=== PATIENT | female | born 1950 | race Caucasian/White ===

== ENCOUNTER 2023-09-29 13:10 | Inpatient (IN) ==
[2023-09-29 13:45] LABS: HCO3 VBG 23 mmol/L; Oxygen Saturation VBG < 60.0 %; PCO2 VBG 40 mmHg (38-50); PO2 VBG 36 mmHg; pH VBG 7.37 (7.36-7.41)
[2023-09-29 13:55] LABS: Basophils # (auto) 0.06 K/uL (0.00-0.20); Basophils % (auto) 0.9 %; Eosinophils # (auto) 0.15 K/uL (0.00-0.50); Eosinophils % (auto) 2.4 %; Hematocrit (blood only) 38.2 % (37.0-47.0); Hemoglobin 11.4 g/dl (12.0-16.0); Immature Granulocytes # (auto) 0.04 K/uL (0.01-0.20); Immature Granulocytes % (auto) 0.6 %; Lymphocytes # (auto) 1.16 K/uL (1.20-3.40); Lymphocytes % (auto) 18.3 %; Mean Corpuscular Hemoglobin 24.1 pg (25.0-34.0); Mean Corpuscular Hgb Conc 29.8 g/dL (32.0-36.0); Mean Corpuscular Volume 80.6 fL (80.0-100.0); Mean Platelet Volume 8.6 fL (9.4-12.4); Monocytes # (auto) 0.37 K/uL (0.11-0.59); Monocytes % (auto) 5.8 %; Neutrophils # (auto) 4.56 K/uL (1.40-6.50); Platelet Count 157 K/uL (130-400); RDW Coefficient of Variation 17.5 % (11.5-14.5); RDW Standard Deviation 51.6 fL (36.4-46.3); Red Blood Count 4.74 M/uL (4.20-5.40); White Blood Count 6.34 K/ul (4.8-10.8)
--- NOTE | 2023-09-29 13:58 | XRay Report ---
XR chest 1V portable CLINICAL HISTORY: Dyspnea. COMPARISON STUDY: No previous studies for comparison. FINDINGS: Lung volumes are normal. Exam is compromised given suboptimal penetration. There is no pneu mothorax. There are suspected small bilateral pleural effusions. Left basilar opacity is noted. There may also be left basilar opacity. Cardiac silhouette is enlarged. There is pulmonary vascular conges tion without overt pulmonary edema. Mediastinal widening is likely related to lipomatosis. IMPRESSION: 1. Cardiomegaly with pulmonary vascular congestion. 2. Right basilar opacity. Possible left basilar opacity. The findings may reflect pneumonia or atele ctasis. Radiographic follow-up to ensure resolution is recommended. 3. Small bilateral pleural effusions. ACT 112: Negative or not required by law. Electronically signed by: Johnny Gimenez M.D. 09/29/2023 1:57 PM
--- NOTE | 2023-09-29 14:08 | Emergency Department Note ---
Impression & Plan Acute dyspnea, Acute exacerbation of chronic obstructive pulmonary disease, Hypoxia ED Provider Note HISTORY OF PRESENT ILLNESS: Patient is a 73-year-old female presenting with shortness of breath. Patient reports that her primary care provider's appointment today at 11 AM. She went to her PCP appointment and then was referred to the emergency department. Patient reports she has had progressively worsening shortness of breath over the last 2 weeks. Reports chronic lower extremity edema. Denies any significant cough. Denies any chest pain. Denies any recent fevers. She does report that there are multiple people in her apartment complex to have had COVID. Patient does report she has a history of COPD but has not been on any oral antibiotics or steroids recently. Reports her home pulse ox was dropping into the 80s. ROS: as above PHYSICAL EXAM: Constitutional: Patient appears in no acute distress. HENT: Head: Normocephalic and atraumatic. Eyes: EOMI, PERRL Mouth/Throat: Mucous membranes moist. Neck: Trachea midline. Neck supple. Cardiovascular: Irregular rhythm. No murmurs, rubs or gallops. Intact distal pulses. Pulmonary/Chest: No respiratory distress. Breath sounds clear and equal bilaterally. No wheezes or rales. Abdominal: Abdomen soft, no tenderness, rebound or guarding. Musculoskeletal: No tenderness or deformity noted. Non-pitting edema of bilateral lower extremities extending to ankles. Skin: Warm and dry. No rash, erythema, pallor or cyanosis Psychiatric: Appropriate mood and affect for situation. Neurological: Alert and keenly responsive. CN II-XII grossly intact, moving all extremities equally and fully. MDM: - Vitals signs showed hypertension and tachycardia. - History obtained via patient. History as above. - Chronic conditions affecting care: HTN; DM-2; COPD; leg swelling - Differential diagnoses include, but are not limited to: Congestive heart failure; acute coronary syndrome; COPD/asthma exacerbation; pulmonary edema; pulmonary embolism; pneumonia; pneumothorax; viral syndrome - Order placed for continuous cardiac monitoring. At this time, monitor showed rate of 95 bpm with irregular rhythm, per my interpretation. - External medical records reviewed. [facility] medicine visit note from today was reviewed. Patient presented to their clinic for shortness of breath for the last 2 weeks with exertion. She had reported to them that her home pulse ox was dropping into the 80s. They instructed her to present to the emergency department. Patient drove herself home from the clinic and then called 911. - EKG interpreted by myself showed atrial fibrillation. Rate 91 bpm. QT 366. No acute ischemic changes. - Laboratory workup interpreted by myself showed normal WBC; stable electrolytes; normal troponin; elevated BNP (151) - Viral respiratory panel negative - UA negative for infection - VBG negative - CXR negative for pneumonia, per my interpretation. Radiology notes bilateral opacities. - Did not start patient on antibiotics, as she has had no fever and no WBC. - Patient ambulated with nursing staff and saturation's dropped to mid-80s. She became very dyspneic and wheezy. Given duoneb treatment and 60 mg IV solumedrol (patient is diabetic). Started on 2L NC. - Discussion was had with case planner about patient's case and need for admission - Hospitalist consulted for admission - [facility] ASSESSMENT AND PLAN: Diagnosis: acute dyspnea; hypoxia; COPD exacerbation Plan: admit Past Med/Surg History Social History Smoking Status: Former smoker Preferred Language: Venezuelan Feels Safe at Home: Yes Allergies Allergies Allergy/AdvReac Type Severity Reaction Status Date / Time bee venom protein (honey bee) Allergy Severe Hives Verified 09/29/23 16:27 diphenhydramine Allergy Hives Verified 09/29/23 16:29 [From Benadryl] [place] Allergy itchy rash Uncoded 09/29/23 16:29 Home Meds Home Medications Medication Instructions Recorded Confirmed albuterol sulfate 90 mcg/actuation 2 puff inhalation Q4 PRN Shortness 09/29/23 09/29/23 aerosol inhaler Of Breath Or Wheezing fluticasone propionate 45 2 puff inhalation BID 09/29/23 09/29/23 mcg-salmeterol 21 mcg/actuation HFA inhaler (Advair HFA) gabapentin 100 mg capsule 100 mg PO TID 09/29/23 09/29/23 glipizide 5 mg tablet 10 mg PO QAM 09/29/23 09/29/23 insulin glargine 100 unit/mL (3 22 unit subcut .HS PRN 09/29/23 09/29/23 mL) subcutaneous pen (Lantus Solostar U-100 Insulin) lisinopril 40 mg tablet 40 mg PO DAILY 09/29/23 09/29/23 naproxen sodium 220 mg tablet 440 mg PO HS 09/29/23 09/29/23 ([place]) Results & Data (ED) Vital Signs Vital Signs - 24 hr 09/29/23 13:27 09/29/23 13:27 09/29/23 13:29 Temperature 36.9 C Temperature Source Temporal Artery Scan Pulse Rate 85 95 H Pulse Rate [Apical] Pulse Rate from SpO2 Sensor Respiratory Rate 26 H Respiratory Effort / Characteristics Labored Respiratory Depth Normal Blood Pressure 154/98 H Blood Pressure [Right Arm] Blood Pressure Mean 116 Blood Pressure Mean [Right Arm] Pulse Oximetry 94 Oxygen Delivery Method Room Air Room Air Sepsis Recent Fever Within 48 Hours No Sepsis New/Unexplained Change in Mental Status No Sepsis Action Taken by Nursing No Action Required Pulse Oximetry Post Tiitration 94 09/29/23 13:30 09/29/23 14:06 09/29/23 14:18 Temperature Temperature Source Pulse Rate 80 Pulse Rate [Apical] 96 H Pulse Rate from SpO2 Sensor 88 Respiratory Rate 23 Respiratory Effort / Characteristics Respiratory Depth Blood Pressure 143/85 H Blood Pressure [Right Arm] 143/74 H Blood Pressure Mean 104 Blood Pressure Mean [Right Arm] 97 Pulse Oximetry 93 92 92 Oxygen Delivery Method Room Air Room Air Room Air Sepsis Recent Fever Within 48 Hours Sepsis New/Unexplained Change in Mental Status Sepsis Action Taken by Nursing Pulse Oximetry Post Tiitration 09/29/23 15:00 09/29/23 15:22 09/29/23 17:00 Temperature Temperature Source Pulse Rate 96 H 100 H 93 H Pulse Rate [Apical] Pulse Rate from SpO2 Sensor Respiratory Rate 21 30 H 26 H Respiratory Effort / Characteristics Respiratory Depth Blood Pressure 147/84 H Blood Pressure [Right Arm] Blood Pressure Mean 105 Blood Pressure Mean [Right Arm] Pulse Oximetry 92 88 L 93 Oxygen Delivery Method Room Air Room Air Sepsis Recent Fever Within 48 Hours Sepsis New/Unexplained Change in Mental Status Sepsis Action Taken by Nursing Pulse Oximetry Post Tiitration 09/29/23 17:36 Temperature Temperature Source Pulse Rate 85 Pulse Rate [Apical] Pulse Rate from SpO2 Sensor Respiratory Rate Respiratory Effort / Characteristics Respiratory Depth Blood Pressure Blood Pressure [Right Arm] Blood Pressure Mean Blood Pressure Mean [Right Arm] Pulse Oximetry Oxygen Delivery Method Sepsis Recent Fever Within 48 Hours Sepsis New/Unexplained Change in Mental Status Sepsis Action Taken by Nursing Pulse Oximetry Post Tiitration Laboratory Data 09/29/23 13:25 09/29/23 13:25 Lab Results 09/29/23 09/29/23 09/29/23 Range/Units 13:25 13:37 14:30 WBC 6.34 (4.8-10.8) K/ul RBC 4.74 (4.20-5.40) M/uL Hgb 11.4 L (12.0-16.0) g/dl Hct 38.2 (37.0-47.0) % MCV 80.6 (80.0-100.0) fL MCH 24.1 L (25.0-34.0) pg MCHC 29.8 L (32.0-36.0) g/dL RDW Std Deviation 51.6 H (36.4-46.3) fL RDW Coeff of Kiera 17.5 H (11.5-14.5) % Plt Count 157 (130-400) K/uL MPV 8.6 L (9.4-12.4) fL Immature Gran % (Auto) 0.6 % Neut % (Auto) 72.0 % Lymph % (Auto) 18.3 % Daniels % (Auto) 5.8 % Eos % (Auto) 2.4 % Baso % (Auto) 0.9 % Neut # (Auto) 4.56 (1.40-6.50) K/uL Lymph # (Auto) 1.16 L (1.20-3.40) K/uL Daniels # (Auto) 0.37 (0.11-0.59) K/uL Eos # (Auto) 0.15 (0.00-0.50) K/uL Baso # (Auto) 0.06 (0.00-0.20) K/uL Immature Gran # (Auto) 0.04 (0.01-0.20) K/uL PT 12.0 (9.0-12.0) Seconds INR 1.1 (0.9-1.1) VBG pH 7.37 (7.36-7.41) VBG pCO2 40 (38-50) mmHg VBG pO2 36 mmHg VBG HCO3 23 mmol/L VBG O2 Saturation < 60.0 % VBG Base Excess -2.0 mEq/L Sodium 139 (136-145) mmol/L Potassium 3.9 (3.5-5.1) mmol/L Chloride 108 H (98-107) mmol/L Carbon Dioxide 23 (21-32) mmol/L Anion Gap 8 (3-11) BUN 15 (6-23) mg/dl Creatinine 0.91 (0.6-1.2) mg/dl Est Cr Clr Drug Dosing 64.9 ml/min Est GFR ( Amer) 72.5 ml/min Est GFR (Non-Af Amer) 62.6 ml/min BUN/Creatinine Ratio 16.5 (10-20) Glucose 108 H (70-99(Fasting)) mg/dl Calcium 9.3 (8.6-10.3) mg/dl Magnesium 1.9 (1.7-2.4) mg/dl Total Bilirubin 0.7 (0.2-1.0) mg/dl AST 18 (13-39) U/L ALT 15 (7-52) U/L Alkaline Phosphatase 91 (34-104) U/L Troponin I High Sens 12.9 (0-14) pg/ml B-Natriuretic Peptide 151 H (0-100) pg/ml Total Protein 6.8 (6.0-8.3) gm/dl Albumin 4.1 (3.4-5.0) gm/dl Globulin 2.7 (2.5-4.0) gm/dl Albumin/Globulin Ratio 1.5 (0.9-2) Urine Color Yellow Urine Appearance Clear (Clear) Urine pH 5.0 (4.5-7.5) Ur Specific [place] 1.020 (1.000-1.030) Urine Protein 1+ H (Negative) Urine Glucose (UA) Negative (Negative) Urine Ketones Negative (Negative) Urine Blood Negative (Negative) Urine Nitrite Negative (Negative) Urine Bilirubin Negative (Negative) Urine Urobilinogen Negative (Negative) Ur Leukocyte Esterase Trace H (Negative) Urine WBC (Auto) 0-5 (0-5) /hpf Urine RBC (Auto) 0-2 (0-2) /hpf U Hyaline Cast (Auto) 0-2 (0-2) /lpf U Epithel Cells (Auto) 6-10 H (0-2) /hpf Urine Bacteria (Auto) 2+ H (None Seen) Adenovirus (PCR) Not Detected (NotDetected) B. pertussis DNA (PCR) Not Detected (NotDetected) B.parapertussis DNA PCR Not Detected (NotDetected) C. pneumoniae DNA (PCR) Not Detected (NotDetected) Coronavirus OC43 (PCR) Not Detected (NotDetected) Coronavirus HKU1 (PCR) Not Detected (NotDetected) Coronavirus 229E (PCR) Not Detected (NotDetected) SARS-CoV-2 (PCR) Not Detected (NotDetected) Coronavirus NL63 (PCR) Not Detected (NotDetected) Human Metapneumovir PCR Not Detected (NotDetected) Influenza Type A (PCR) Not Detected (NotDetected) Influenza Type B (PCR) Not Detected (NotDetected) M. pneumoniae (PCR) Not Detected (NotDetected) Parainfluenza 1 (PCR) Not Detected (NotDetected) Parainfluenza 2 (PCR) Not Detected (NotDetected) Parainfluenza 3 (PCR) Not Detected (NotDetected) Parainfluenza 4 (PCR) Not Detected (NotDetected) RSV (PCR) Not Detected (NotDetected) Entero/Rhino (PCR) Not Detected (NotDetected) Administered Medications Discontinued Medications Albuterol (Albut/Ipratrop 3mg/0.5mg Neb 3 Ml Vial) 3 ml NEB NOW STA; Protocol Stop: 09/29/23 15:24 Last Admin: 09/29/23 15:29 Dose: 3 ml Documented By: OAC Methylprednisolone (Methylprednisolone 125 Mg/2 Ml Vial) 60 mg IV NOW STA Stop: 09/29/23 15:24 Last Admin: 09/29/23 15:29 Dose: 60 mg Documented By: OAC Imaging Data Radiologist's Impression: Chest X-Ray 09/29/23 13:30 XR chest 1V portable CLINICAL HISTORY: Dyspnea. COMPARISON STUDY: No previous studies for comparison. FINDINGS: Lung volumes are normal. Exam is compromised given suboptimal penetration. There is no pneumothorax. There are suspected small bilateral pleural effusions. Left basilar opacity is noted. There may also be left basilar opacity. Cardiac silhouette is enlarged. There is pulmonary vascular congestion without overt pulmonary edema. Mediastinal widening is likely related to lipomatosis. IMPRESSION: 1. Cardiomegaly with pulmonary vascular congestion. 2. Right basilar opacity. Possible left basilar opacity. The findings may reflect pneumonia or atelectasis. Radiographic follow-up to ensure resolution is recommended. 3. Small bilateral pleural effusions. ACT 112: Negative or not required by law. Electronically signed by: Johnny Gimenez M.D. 09/29/2023 1:57 PM Discharge Plan Visit Data Chief Complaint: Shortness of Breath/Dyspnea Stated Complaint: OB ED Provider: Ann Fernandez Discharge Problem: Acute dyspnea, Acute exacerbation of chronic obstructive pulmonary disease, Hypoxia Forms Stand Alone Forms: [facility] Prescriptions Prescriptions: No Action naproxen sodium [Aleve] 220 mg Tablet 440 mg PO HS gabapentin 100 mg capsule 100 mg PO TID albuterol sulfate 90 mcg/actuation HFA aerosol inhaler 2 puff INHALATION Q4 PRN (Reason: Shortness Of Breath Or Wheezing) lisinopril 40 mg Tablet 40 mg PO DAILY glipizide 5 mg Tablet 10 mg PO QAM fluticasone propion-salmeterol [Advair HFA] 45-21 mcg/actuation HFA aerosol inhaler 2 puff INHALATION BID insulin glargine [Lantus Solostar U-100 Insulin] 100 unit/mL (3 mL) insulin pen 22 unit SUBCUT .HS PRN Rx Instructions: takes if bsg < 120 Referrals Referrals: PCP,NO [Physician] -
[2023-09-29 14:09] LABS: Albumin Globulin Ratio 1.5 (0.9-2); Albumin Level 4.1 gm/dl (3.4-5.0); BUN Creatinine Ratio 16.5 (10-20); Bilirubin,Total 0.7 mg/dl (0.2-1.0); Calcium 9.3 mg/dl (8.6-10.3); Creatinine Clr Calc Pharmacy 64.9 ml/min; Est GFR (African American) 72.5 ml/min; Est GFR (Non-African American) 62.6 ml/min; Globulin 2.7 gm/dl (2.5-4.0); Magnesium 1.9 mg/dl (1.7-2.4); Potassium 3.9 mmol/L (3.5-5.1); Total Protein 6.8 gm/dl (6.0-8.3)
[2023-09-29 14:13] LABS: Troponin I High Sensitivity 12.9 pg/ml (0-14)
[2023-09-29 14:20] LABS: INR 1.1 (0.9-1.1)
[2023-09-29 14:46] LABS: Adenovirus PCR Not Detected (NotDetected); Bordetella parapertussis PCR Not Detected (NotDetected); Bordetella pertussis PCR Not Detected (NotDetected); Chlamydia pneumoniae PCR Not Detected (NotDetected); Coronavirus 229E PCR Not Detected (NotDetected); Coronavirus CoV-2 (COVID19)PCR Not Detected (NotDetected); Coronavirus HKU1 PCR Not Detected (NotDetected); Coronavirus NL63 PCR Not Detected (NotDetected); Coronavirus OC43PCR Not Detected (NotDetected); Human Metapneumovirus PCR Not Detected (NotDetected); Influenza A PCR Not Detected (NotDetected); Influenza B PCR Not Detected (NotDetected); Mycoplasma pneumoniae PCR Not Detected (NotDetected); Parainfluenza Virus 1 PCR Not Detected (NotDetected); Parainfluenza Virus 2 PCR Not Detected (NotDetected); Parainfluenza Virus 3 PCR Not Detected (NotDetected); Parainfluenza Virus 4 PCR Not Detected (NotDetected); Respiratory Syncytial VirusPCR Not Detected (NotDetected); Rhinovirus/Enterovirus PCR Not Detected (NotDetected)
[2023-09-29 15:10] LABS: Appearance Urine Clear (Clear); Bacteria Urine Automated 2+ (None Seen); Bilirubin Urine Negative (Negative); Blood Urine Negative (Negative); Cast Urine Automated 0-2 /lpf (0-2); Color Urine Yellow; Glucose Urine UA Negative (Negative); Ketones Urine Negative (Negative); Leukocyte Esterase Urine Trace (Negative); Nitrite Urine Negative (Negative); Protein Urine 1+ (Negative); RBC Urine Automated 0-2 /hpf (0-2); Urobilinogen Urine Negative (Negative); WBC Urine Automated 0-5 /hpf (0-5)
[2023-09-29] MEDS: methylPREDNISolone 125 MG/2 ML VIAL IV STA (15:29)
[2023-09-29] MEDS: ALBUT/IPRATROP 3MG/0.5MG NEB 3 ML VIAL NEB STA (15:29)
--- NOTE | 2023-09-29 19:04 | History & Physical Report ---
Date of Service September 29, 2023 Assessment & Plan (1) Acute exacerbation of chronic obstructive pulmonary disease: Plan: History of COPD on bronchodilators at home Shortness of breath for the last 2 weeks with cough and phlegm Infective exacerbation likely secondary to right basilar pneumonia Will start nebulized bronchodilator Intravenous Solu-Medrol and intravenous antibiotic Oxygen as needed Will also give cough medicine (2) Hypertension: Plan: Blood pressure remains on the upper side Will continue with current blood pressure medication Monitor (3) Type 2 diabetes mellitus, with long-term current use of insulin: Plan: Has been on glyburide and insulin Will continue and put her on sliding scale insulin coverage Will check hemoglobin A1c GERD Will put her on PPI DVT prophylaxis Subcu heparin CODE STATUS Full History of Present Illness Chief Complaint: Shortness of breath with exertion for the last 2 weeks Primary Care Provider: Devika Schofield RN She is a 73-year-old female with significant past medical history of COPD, hypertension, type 2 diabetes and GERD apparently has been complaining of shortness of breath with exertion for the last 2 weeks. The condition has been getting gradually worse and worse and she tried to get an appointment with the PCP but could not get one until today she was seen by her PCP and was sent to emergency room for continuation of care. Noted to have significant desaturation with increasing shortness of breath and wheezing. Denies any fever and or chills but has cough with productive of whitish-yellow phlegm. Oxygen saturation was noted to be around 80s at doctor's office. No chest pain or palpitation. No abdominal pain nausea and or vomiting. She was admitted with exacerbation of COPD with possible pneumonia in the right base. Allergies Allergy/AdvReac Type Severity Reaction Status Date / Time bee venom protein (honey bee) Allergy Severe Hives Verified 09/29/23 16:27 diphenhydramine Allergy Hives Verified 09/29/23 16:29 [From Benadryl] [place] Allergy itchy rash Uncoded 09/29/23 16:29 Home Medications Medication Instructions Recorded Confirmed Type albuterol sulfate 90 mcg/actuation 2 puff inhalation Q4 PRN Shortness 09/29/23 09/29/23 History aerosol inhaler Of Breath Or Wheezing fluticasone propionate 45 2 puff inhalation BID 09/29/23 09/29/23 History mcg-salmeterol 21 mcg/actuation HFA inhaler (Advair HFA) gabapentin 100 mg capsule 100 mg PO TID 09/29/23 09/29/23 History glipizide 5 mg tablet 10 mg PO QAM 09/29/23 09/29/23 History insulin glargine 100 unit/mL (3 22 unit subcut .HS PRN 09/29/23 09/29/23 History mL) subcutaneous pen (Lantus Solostar U-100 Insulin) lisinopril 40 mg tablet 40 mg PO DAILY 09/29/23 09/29/23 History naproxen sodium 220 mg tablet 440 mg PO HS 09/29/23 09/29/23 History (Aleve) Past Med/Surg History Social History Smoking Status: Former smoker Preferred Language: Persian Feels Safe at Home: Yes Review of Systems Review of Systems: All systems reviewed and are unremarkable except as mentioned in H&P Physical Exam Physical Exam: Lying in bed with some distress due to shortness of breath Constitutional: well developed, well nourished, + ill appearing and + obese Eyes: PERRL, conjunctivae normal, anicteric sclerae ENMT: external ear and nose normal, oropharynx normal Neck: trachea midline, no thyromegaly Respiratory: + respiratory distress (Minimal distress at rest) Auscultation: + diminished lung sounds, + crackles (Bibasilar crackles more on the right side) and + wheezes (Mild to moderate wheezing bilaterally) Cardiovascular: Rate/Rhythm: regular rate and regular rhythm; not tachycardic Heart Sounds: normal S1 and normal S2; no murmur Extremities: + edema (1+ edema bilaterally with chronic skin changes) Gastrointestinal (Abdomen): Inspection/Auscultation: + abdomen distended and normal bowel sounds Percussion/Palpation: abdomen soft; abdomen nontender Musculoskeletal: No acute arthritis involving any of the joint Neurologic: normal touch/pain/proprioception and moves all extremities; no focal motor deficits Psychiatric: A+Ox3, euthymic affect Lymphatic: no cervical or axillary lymphadenopathy Results & Data Results & Data Vital Signs (Past 12 Hours) Vital Signs Temp Pulse Pulse Resp BP BP Pulse Ox 09/29/23 17:36 85 09/29/23 17:00 93 H 26 H 93 09/29/23 15:22 100 H 30 H 88 L 09/29/23 15:00 96 H 21 147/84 H 92 09/29/23 14:18 92 09/29/23 14:06 96 H 143/74 H 92 09/29/23 13:30 80 23 143/85 H 93 09/29/23 13:29 95 H 09/29/23 13:27 09/29/23 13:27 36.9 C 85 26 H 154/98 H 94 O2 Del Method 09/29/23 17:36 09/29/23 17:00 09/29/23 15:22 Room Air 09/29/23 15:00 Room Air 09/29/23 14:18 Room Air 09/29/23 14:06 Room Air 09/29/23 13:30 Room Air 09/29/23 13:29 09/29/23 13:27 Room Air 09/29/23 13:27 Room Air Laboratory Results Short CBC 09/29/23 Range/Units 13:25 WBC 6.34 (4.8-10.8) K/ul Hgb 11.4 L (12.0-16.0) g/dl Hct 38.2 (37.0-47.0) % Plt Count 157 (130-400) K/uL BMP 09/29/23 13:25 Sodium 139 Potassium 3.9 Chloride 108 H Carbon Dioxide 23 BUN 15 Creatinine 0.91 Glucose 108 H Calcium 9.3 Liver Function 09/29/23 Range/Units 13:25 Total Bilirubin 0.7 (0.2-1.0) mg/dl AST 18 (13-39) U/L ALT 15 (7-52) U/L Alkaline Phosphatase 91 (34-104) U/L Albumin 4.1 (3.4-5.0) gm/dl Urine 09/29/23 Range/Units 14:30 Urine Color Yellow Urine Appearance Clear (Clear) Urine pH 5.0 (4.5-7.5) Ur Specific [place] 1.020 (1.000-1.030) Urine Protein 1+ H (Negative) Urine Glucose (UA) Negative (Negative)
[2023-09-29] MEDS ORDERED: guaiFENesin/DEXTROM SYRUP 200MG/20MG 10ML UDC PO PRN (19:07)
[2023-09-29] MEDS ORDERED: GLUCOSE 10 TAB/TUBE PO PRN (19:11)
[2023-09-29] MEDS ORDERED: DEXTROSE 50% 50 ML SYRINGE IV PRN (19:11)
[2023-09-29] MEDS ORDERED: GLUCAGON FOR INJ 1 MG VIAL SQ PRN (19:11)
[2023-09-29] MEDS ORDERED: CARBOHYDRATES FOR HYPOGLYCEMIA PO PRN (19:11)
[2023-09-29] MEDS ORDERED: GLUCOSE 40% GEL 15 GM TUBE PO PRN (19:11)
[2023-09-29] MEDS ORDERED: methylPREDNISolone 125 MG/2 ML VIAL IV SCH (19:15)
[2023-09-29] MEDS ORDERED: methylPREDNISolone 60 MG in SYRINGE 0 ML IV SCH (19:30)
[2023-09-29] MEDS: cefTRIAXone SODIUM 2,000 MG in DEXTROSE 5 % MINI-B 50 ML IV SCH (19:37)
[2023-09-29] MEDS: HEPARIN SOD 5,000 UNIT/0.5 ML VIAL SQ SCH (20:03)
[2023-09-29] MEDS: INSULIN ASPART PER UNIT CHARGE SC SCH (20:07)
[2023-09-29] MEDS: PANTOprazole 40 MG TAB PO SCH (20:07)
[2023-09-29] MEDS: DOXYCYCLINE HYCLATE 100 MG in DEXTROSE 5% MINI-B 100 ML IV SCH (20:43)
[2023-09-29] MEDS: LANTUS PER UNIT CHARGE SQ SCH (23:50)
[2023-09-29] MEDS: GABAPENTIN 100 MG CAP PO SCH (23:52)
[2023-09-29] MEDS: FLUTICASONE/VILANTEROL 100/25MCG 14 PUFFS/INHALER INH SCH (23:53)
[2023-09-29] MEDS: methylPREDNISolone 60 MG in SYRINGE 0 ML IV SCH (23:55)
[2023-09-30] MEDS: ALBUT/IPRATROP 3MG/0.5MG NEB 3 ML VIAL NEB PRN (01:32)
[2023-09-30] MEDS: FUROSEMIDE INJ 20 MG/2 ML VIAL IV ONE ×3 (02:23→12:49)
--- OUTSIDE RECORDS SUMMARY | 2023-09-30 03:48 | External Medical Summary | Summary of Care ---
Author Name Unknown Organization [facility] Address [address] [place] [address] Phone [phone] Care Team Providers Care Chief Of Party Name Role Phone Andrew Siddiqi MD Primary Care Provide r Reason for Visit * Reason Onset Date Comments Medication Refill 05/22/2023 Encounter Details Date Type Department Care Team (Late st Contact Info) Description 05/22/2023 Refill Family [address] [place] [phone] Andrew Siddiqi MD [address] [place] [address] [place] [phone] Allergies Active Allergy Reactions Criticality Noted Date Comments Diphenhydramine 08/09/2020 Food (See Comments) 01/02/2021 Honey, spearmint, BEES and bee products Insulin Glargine Itching,Rash 10/07/2022 Previously ok on Lantus documented as of this encounter (statuses as of 05/25/2023) Medications Medication Sig Dispensed Refills Start Date End Date Status Fluocinonide 0.05 % External Ointment Apply topically to hands 2-3 times daily as needed for rash 180 g 0 01/07/2021 Active Varenicline Tartrate 0.5 MG X 11 & 1 MG X 42 OralIndications:Cigar ette nicotine dependence without complication Take as directed on box. 53 Each 0 03/05/2022 Active BD Pen Needle Short U/F 31G X 8 MM (Insulin Pen Needle)Indications:Ty pe 2 diabetes mellitus with hemoglobin A1c goal of less than 8.0% (HCC) Use with Lantus Pen-Injector once daily 100 Each 0 09/17/2022 Active glipiZIDE ER 5 MG Oral Tablet Extended Release 24 Hour (Glucotrol XL)Indications:Type 2 diabetes mellitus with hemoglobin A1c goal of less than 8.0% (HCC),Type 2 diabetes mellitus with hemoglobin A1c goal of less than 7.0% (HCC) Take 2 Tablets by mouth in the morning. 180 Tablet 0 09/17/2022 Active Lisinopril 40 MG Oral TabletIndications:HTN , goal below 140/90 Take 1 Tablet by mouth in the morning. 90 Tablet 1 09/17/2022 Active Accu-Chek Guide In Vitro Strip (Glucose Blood)Indications:Typ e 2 diabetes mellitus with hemoglobin A1c goal of less than 8.0% (HCC) Use to test sugars up to 4 times a day. E11.9 400 Strip 0 10/07/2022 Active Accu-Chek Guide w/Device KitIndications:Type 2 diabetes mellitus with hemoglobin A1c goal of less than 8.0% (HCC) Use as directed. Use to test sugars up to 4 times a day. E11.9 1 Kit 0 10/07/2022 Active Accu-Chek Softclix LancetsIndications:Ty pe 2 diabetes mellitus with hemoglobin A1c goal of less than 8.0% (HCC) Use to test sugars up to 4 times a day. E11.9 400 Each 1 10/07/2022 Active Fluticasone-Salmetero l 45-21 MCG/ACT Inhalation Aerosol (Advair HFA)Indications:COPD, group B, by GOLD 2017 classification ([facility]) Inhale 2 Puffs by mouth in the morning and 2 Puffs before bedtime. 36 g 1 04/02/2023 Active Ventolin HFA 108 (90 Base) MCG/ACT Inhalation Aerosol SolutionIndications:C OPD, group B, by GOLD 2017 classification ([facility]) Inhale 2 Puffs by mouth every 4 hours as needed for Wheezing. 54 g 1 04/02/2023 Active Gabapentin 100 MG Oral Capsule (Neurontin)Indication s:Lumbar degenerative disc disease,Chronic bilateral low back pain with left-sided sciatica Take 1 Capsule by mouth in the morning and 1 Capsule at noon and 1 Capsule before bedtime. 90 Capsule 1 05/20/2023 Active Lantus SoloStar 100 UNIT/ML Subcutaneous Solution Pen-injectorIndicatio ns:Type 2 diabetes mellitus with hemoglobin A1c goal of less than 8.0% (HCC) Inject 22 Units under the skin at bedtime. 30 mL 2 05/20/2023 Active Ipratropium-Albuterol 0.5-2.5 (3) MG/3ML Inhalation Solution (Duoneb) Inhale 3 mL via nebulizer every 6 hours as needed for Shortness of Breath. 100 mL 0 05/25/2023 Active documented as of this encounter (statuses as of 05/25/2023) Active Problems Problem Noted Date Diagnosed Date Chronic bilateral low back pain with left-sided sciatica 02/05/2023 COPD, group B, by GOLD 2017 classification 02/25 Overview: Per COPD GOLD Classification Leg swelling 11/19/2020 HTN, goal below 140/90 08/09/2020 Type 2 diabetes mellitus wit h hemoglobin A1c goal of less than 8.0% 08/09/2020 Lumbar degenerative disc disease 08/09/2020 documented as of this encounter (statuses as of 05/25/2023) Resolved Problems Problem Noted Date Diagnosed Date Resolved Date COPD, severity to be determined 08/09/2020 02/28/2021 Overview: Per COPD GOLD Classification documented as of this encounter (statuses as of 05/25/2023) Social History Tobacco Use Types Packs/Day Years Used Date Smoking Tobacco: Former Cigarettes 0.3 56 Smokeless Tobacco: Never Comments:pt has tried patche s, chantix and hives Alcohol Use Standard Drinks/Week Comments Not Currently 0 (1 standard drink = 0.6 oz pur e alcohol) PHQ-2 Answer Date Recorded PHQ Adult Total Score 0 01/08/2022 Hunger Vital Sign Answer Date Recorded Within the past 12 months, y ou worried that your food would run out before you got the money to buy more. Never true 01/09/20 22 Within the past 12 months, t he food you bought just didn't last and you didn't have money to get more. Never true 01/08/2022 Sex and Gender Information Value Date Recorded Sex Assigned at Female 01/02/2021 12:50 PM EDT Gender Identity Female 01/02/2021 12:50 PM EDT Sexual Orientation Straight 01/02/2021 12 :50 PM EDT Job Start Date Occupation Industry Not on file Not on file Not on file documented as of this encounter Miscellaneous Notes * Telephone Encounter - Andrew Siddiqi MD - 05/25/2023 2:44 PM EST Signed Prescriptions: Disp Refills Ipratropium-Albuterol 0.5-2.5 (3) MG/3ML I*100 mL 0 Sig: Inhale 3 mL via nebulizer every 6 hours as needed for Shortness of Breath.Authorizing Provider: ANDREW SIDDIQI * Addendum Note - Andrew Siddiqi MD - 05/25/2023 2:44 PM ESTAddended by: ANDREW SIDDIQI on: 05/25/2023 02:44 PM Modules accepted: Orders * Telephone Encounter - Andrew Siddiqi MD - 05/25/2023 2:43 PM EST Called the pt to discuss her current symptoms - no answer x2 - agree with recommendation to be evaluated in an urgent care or ER - since pt is refusing duoneb sent * Addendum Note - Katerine Goel LPN - 05/25/2023 1:47 PM ESTAddended by: KATERINE GOEL on: 05/25/2023 01:47 PM Modules accepted: Orders * Telephone Encounter - Katerine Goel LPN - 05/25/2023 1:11 PM EST Pt is returning phone call. Reports that she has been sick for 3 weeks with and occasional cough, catching chills, running out of breath. States that when she is able to cough up a chunk of phlegm, it's a relief. Is running of of breath just walking from her kitchen to her bathroom. Pt rates SOB moderate to severe. Can Audibly hear that pt is SOB when speaking on the phone. Prescribed inhalers are not helping. Denies fever. Did home COVID test and it resulted negative. States that as soon as she steps outside, the cold air takes her breath away. Called PCP office due to no available acute appt's, spoke with Yanique and was advised that if pt is truly SOB that she needs to go to the ER and pt should schedule an appt. After getting back on the phone, explained to pt about scheduling an appt, pt stated she is not able to afford coming in for an appointment until June when insurance switches to [employer] and thenabruptly disconnected the phone call. Pt does have a nebulizer device. Pt previously took Ipratropium-Albuterol 0.5- 2.5 (3) MG/3 ML; use 4 times daily PRN as per 08/09/2022 [facility] record transfer, page 2. Med pended. Please advise. Please advise. * Telephone Encounter - Emilee Nagel LPN - 05/25/2023 10:36 AM EST There is no nebulizer med on her med list. There's advair and ventolin inhalers. Please get the actual name of the med when pts call for a refill. Left message for pt to return my call. * Telephone Encounter - Livier Rocha, melter supervisor oxygen furnace - 05/22/2023 4:54 PM EST Pt needs solution for her nebulizer she can barely breath Please send rx fred Thank you for your assistance Livier Rocha Finished Goods Inspector II [facility] ([facility]) 05/22/2023,4:55 PM documented in this encounter Plan of Treatment Upcoming Encounters Date Type Department Care Team (Late st Contact Info) Description 06/23/2023 7:20 AM EST Office Visit Family Medicine [address] [place] [phone] Andrew Siddiqi MD [address] [place] [address] [place] [phone] Health Maintenance Due Date Last Done Comments Pneumococcal Vaccine: 65+ Years (1 - PCV) 1956 Alpha-1 Antitrypsin 1968 DTaP,Tdap,and Td Vaccines (1 - Tdap) 1969 Mammogram 1990 Cologuard 1995 Colonoscopy 1995 Colorectal Cancer Screening 1995 Fecal Occult Blood Test 1995 Sigmoidoscopy 1995 Zoster Vaccines (1 of 2) 2000 Hepatitis B (1 of 3 - Risk 3-dose series) 2010 *COPD SEVERITY VERIFIED BY PFT 08/16/2020 *BASELINE EKG FOR HTN 06/24/2021 Diabetic Eye Exam 10/21/2022 10/21/2021, 02/28/2020 Depression Screening 01/08/2023 01/08/2022 Diabetic Foot Exam 01/08/2023 01/08/2022, 11/19/2020 COVID-19 Vaccine ( - season) 2023 06/20/2021, 05/23/2021 Influenza Vaccine (FLU shot) (#1) 2023 HbA1c 08/08/2023 02/05/2023, 08/0 08/2021, 05/22/2021, Additional history exists Albumin/Creatinine Ratio 02/06/2024 023, 01/15/2022, 11/19/2020 GFR 02/06/2024 02/05/2023, 0 08/2021, 05/22/2021, Additional history exists O2 ASSESSMENT COMPLETED IN PAST YEAR FOR COPD 02/06/2024 02/05/2023 Lipid Panel 02/06/2028 02/05/2023, 0 08/2021, 11/16/2020, Additional history exists DXA Scan 06/25/2028 06/25/2021 GARDASIL-HPV IMMUNIZATION SERIES Aged Out No longer eligible based on patient's age to complete this topic MENINGOCOCCAL (MENACTRA/MENVEO) Aged Out No longer eligible based on patient's age to complete this topic documented as of this encounter Medical Devices Not on filedocumented as of this encounter Care Teams Chief Of Party Relationship Specialty Start Date End Date Andrew Siddiqi MD [address] [place] [address] [place] [phone] PCP - General Family Medicine 11/19/20 documented as of this encounter
--- OUTSIDE RECORDS SUMMARY | 2023-09-30 03:48 | External Medical Summary | Summary of Care ---
Author Name Unknown Organization [facility] Address [address] [place] [address] Phone [phone] Care Team Providers Care Evaluation Engineer Name Role Phone Andrew Siddiqi MD Primary Care Provide r Reason for Visit * Reason Onset Date Comments Appointment 09/22/2023 Encounter Details Date Type Department Care Team (Late st Contact Info) Description 09/22/2023 Telephone Family [address] [place] [phone] Andrew Siddiqi MD [address] [place] [address] [place] [phone] Appointment Allergies Active Allergy Reactions Criticality Noted Date Comments Diphenhydramine 08/09/2020 Food (See Comments) 01/02/2021 Honey, spearmint, BEES and bee products Insulin Glargine Itching,Rash 10/07/2022 Previously ok on Lantus documented as of this encounter (statuses as of 09/28/2023) Medications Medication Sig Dispensed Refills Start Date [...] hemoglobin A1c goal of less than 8.0% ([facility]) Use as directed. Use to test sugars [...] HFA)Indications:COPD, group B, by GOLD 2017 classification ([facility]) Inhale 2 Puffs by mouth in the morning and 2 Puffs before bedtime. 36 g 1 04/02/2023 Active Ventolin HFA 108 (90 Base) MCG/ACT Inhalation Aerosol SolutionIndications:C OPD, group B, by GOLD 2017 classification ([facility]) Inhale 2 Puffs by mouth every 4 [...] hemoglobin A1c goal of less than 8.0% ([facility]) Inject 22 Units under the skin at bedtime. 30 mL 2 05/20/2023 Active Ipratropium-Albuterol 0.5-2.5 (3) MG/3ML Inhalation Solution (Duoneb) Inhale 3 mL via nebulizer every 6 hours as needed for Shortness of Breath. 100 mL 0 05/25/2023 Active documented as of this encounter (statuses as of 09/28/2023) Active Problems Problem Noted Date Diagnosed Date [...] as of this encounter (statuses as of 09/28/2023) Resolved Problems Problem Noted Date Diagnosed Date Resolved Date COPD, severity to be determined 08/09/2020 02/28/2021 Overview: Per COPD GOLD Classification documented as of this encounter (statuses as of 09/28/2023) Social History Tobacco Use Types Packs/Day Years [...] encounter Miscellaneous Notes * Telephone Encounter - Vijaya Rose OSA - 09/28/2023 12:18 PM EDT Patient states that her back is no longer the issue however she is having shortness of breath. I was able to get her scheduled with Yulisa on 09/29/23 @11:40 am * Telephone Encounter - Kami Tarango RN - 09/28/2023 12:12 PM EDT No answer, My G message sent to patient * Telephone Encounter - Cindy Miller OSA - 09/22/2023 11:42 AM EDT Spoke to pt voiced she has back pain and needs a visit, voiced that she re injured herself yesterday and wants to see Yulisa, viji acute visits at other locations voiced " I have no gas" please call pt, thanks documented in this encounter Plan of Treatment Upcoming Encounters Date Type Department Care Team (Late st Contact Info) Description 09/29/2023 11:40 AM EDT Office Visit Family Medicine [address] [place] [phone] Yulisa Díaz PA-C [address] [place] [address] [place] [phone] Health Maintenance Due Date Last Done Comments Pneumococcal Vaccine: 65+ Years (1 of 2 - PCV) 1956 Alpha-1 Antitrypsin 1968 DTaP,Tdap,and Td Vaccines (1 - Tdap) 1969 Mammogram 1990 Cologuard 1995 Colonoscopy 1995 Colorectal Cancer Screening 1995 Fecal Occult Blood Test 1995 Sigmoidoscopy 1995 Zoster Vaccines (1 of 2) 2000 *COPD SEVERITY VERIFIED BY PFT 08/16/2020 *BASELINE EKG FOR HTN 06/24/2021 Diabetic Eye Exam 10/21/2022 10/21/2021, 02/28/2020 Depression Screening 01/08/2023 01/08/2022 Diabetic Foot Exam 01/08/2023 01/08/2022, 11/19/2020 COVID-19 Vaccine ( season) 2023 06/20/2021, 05/23/2021 HbA1c 08/08/2023 02/05/2023, 08/0 08/2021, 05/22/2021, Additional history exists Albumin/Creatinine Ratio 02/06/2024 023, 01/15/2022, 11/19/2020 GFR 02/06/2024 02/05/2023, 08/0 08/2021, 05/22/2021, Additional history exists O2 ASSESSMENT COMPLETED IN PAST YEAR FOR COPD 02/06/2024 02/05/2023 Influenza Vaccine (FLU shot) (Season Ended) 2024 Lipid Panel 02/06/2028 02/05/2023, 08/0 08/2021, 11/16/2020, Additional history exists DXA Scan 06/25/2028 06/25/2021, 06/25/2021 GARDASIL-HPV IMMUNIZATION SERIES Aged Out No longer eligible based on patient's age to complete this topic Hepatitis B Aged Out No longer eligi ble based on patient's age to complete this topic MENINGOCOCCAL (MENACTRA/MENVEO) Aged Out No longer eligible based on patient's age to complete this topic documented as of this encounter Medical Devices Not on filedocumented as of this encounter Care Teams Evaluation Engineer Relationship Specialty Start Date End Date Andrew Siddiqi MD [address] [place] [address] [place] [phone] PCP - General Family Medicine 11/19/20 documented as of this encounter
--- OUTSIDE RECORDS SUMMARY | 2023-09-30 03:48 | External Medical Summary | Summary of Care ---
Author Name Unknown Organization [facility] Address [address] [place] [place] [address] Phone [phone] Care Team Providers Care Social Media Coordinator Name Role Phone Andrew Siddiqi MD Primary Care Provide r Reason for Visit * Reason Comments Acute Encounter Details Date Type Department Care Team (Late st Contact Info) Description 09/29/2023 11:40 AM EDT Office Visit Family Medicine [address] [place] [address] Yulisa Díaz PA-C [address] [place] [address] [place] [phone] SOB (shortness of breath)*; Type 2 diabetes mellitus with hemoglobin A1c goal of less than 8.0% (HCC) Allergies Active Allergy Reactions Criticality Noted Date Comments Diphenhydramine 08/09/2020 Food (See Comments) 01/02/2021 Honey, spearmint, BEES and bee products Insulin Glargine Itching,Rash 10/07/2022 Previously ok on Lantus documented as of this encounter (statuses as of 09/29/2023) Medications Medication Sig Dispensed Refills Start Date End Date Status BD Pen Needle Short U/F 31G X 8 MM (Insulin Pen Needle)Indications :Type 2 diabetes mellitus with hemoglobin A1c goal of less than 8.0% (HCC) Use with Lantus Pen-Injector once daily 100 Each 0 3 Active glipiZIDE ER 5 MG Oral Tablet Extended Release 24 Hour (Glucotrol XL)Indications:Typ e 2 diabetes mellitus with hemoglobin A1c goal of less than 8.0% (HCC),Type 2 diabetes mellitus with hemoglobin A1c goal of less than 7.0% (HCC) Take 2 Tablets by mouth in the morning. 180 Tablet 0 3 Active Lisinopril 40 MG Oral TabletIndications: HTN, goal below 140/90 Take 1 Tablet by mouth in the morning. 90 Tablet 1 3 Active Accu-Chek Guide In Vitro Strip (Glucose Blood)Indications: Type 2 diabetes mellitus with hemoglobin A1c goal of less than 8.0% ([facility]) Use to test sugars up to 4 times a day. E11.9 400 Strip 0 3 Active Accu-Chek Guide w/Device KitIndications:Typ e 2 diabetes mellitus with hemoglobin A1c goal of less than 8.0% ([facility]) Use as directed. Use to test sugars up to 4 times a day. E11.9 1 Kit 0 3 Active Accu-Chek Softclix LancetsIndications :Type 2 diabetes mellitus with hemoglobin A1c goal of less than 8.0% ([facility]) Use to test sugars up to 4 times a day. E11.9 400 Each 1 3 Active Fluticasone-Salmet marisela 45-21 MCG/ACT Inhalation Aerosol (Advair HFA)Indications:CO PD, group B, by GOLD 2017 classification ([facility]) Inhale 2 Puffs by mouth in the morning and 2 Puffs before bedtime. 36 g 1 3 Active Ventolin HFA 108 (90 Base) MCG/ACT Inhalation Aerosol SolutionIndication s:COPD, group B, by GOLD 2017 classification ([facility]) Inhale 2 Puffs by mouth every 4 hours as needed for Wheezing. 54 g 1 3 Active Gabapentin 100 MG Oral Capsule (Neurontin)Indicat ions:Lumbar degenerative disc disease,Chronic bilateral low back pain with left-sided sciatica Take 1 Capsule by mouth in the morning and 1 Capsule at noon and 1 Capsule before bedtime. 90 Capsule 1 3 Active Ipratropium-Albute rol 0.5-2.5 (3) MG/3ML Inhalation Solution (Duoneb) Inhale 3 mL via nebulizer every 6 hours as needed for Shortness of Breath. 100 mL 0 3 Active Lantus SoloStar 100 UNIT/ML Subcutaneous Solution Pen-injectorIndica tions:Type 2 diabetes mellitus with hemoglobin A1c goal of less than 8.0% (HCC) Inject 22 Units under the skin at bedtime. Uses this as needed based on sugars 0 4 Active Naproxen Sodium 220 MG Oral Tablet (Aleve) 2 at bedtime 0 4 Active Fluocinonide 0.05 % External Ointment Apply topically to hands 2-3 times daily as needed for rash 180 g 0 1 09/29/19 24 Discontinued(Pat ient preference/disco ntinuation) Varenicline Tartrate 0.5 MG X 11 & 1 MG X 42 OralIndications:April gifford nicotine dependence without complication Take as directed on box. 53 Each 0 2 09/29/19 24 Discontinued(Pat ient preference/disco ntinuation) Lantus SoloStar 100 UNIT/ML Subcutaneous Solution Pen-injectorIndica tions:Type 2 diabetes mellitus with hemoglobin A1c goal of less than 8.0% (HCC) Inject 22 Units under the skin at bedtime. 30 mL 2 3 09/29/19 24 Discontinued documented as of this encounter (statuses as of 09/29/2023) Active Problems Problem Noted Date Diagnosed Date [...] as of this encounter (statuses as of 09/29/2023) Resolved Problems Problem Noted Date Diagnosed Date Resolved Date COPD, severity to be determined 08/09/2020 02/28/2021 Overview: Per COPD GOLD Classification documented as of this encounter (statuses as of 09/29/2023) Social History Tobacco Use Types Packs/Day Years [...] on file documented as of this encounter Last Filed Vital Signs Vital Sign Reading Time Taken Comments Blood Pressure 150/84 09/29/2023 11:19 AM EDT Pulse 80 09/29/2023 11:19 AM EDT Temperature 36.4 C (97.6 F) 09/29/2023 11:19 AM E DT Respiratory Rate 16 09/29/2023 11:19 AM EDT Oxygen Saturation 94% 09/29/2023 11:19 AM EDT Inhaled Oxygen Concentration - - Weight 108.9 kg (240 lb) 09/29/2023 11:19 AM EDT Height 161.3 cm (5' 3.5") 09/29/2023 11:19 AM ED T Body Mass Index 41.85 09/29/2023 11:19 AM EDT documented in this encounter Progress Notes * Yulisa Díaz PA-C - 09/29/2023 11:28 AM EDT Nursing Notes: Kami Tarango, LEONARD 09/29/23 1125 Sign at exiting of workspace Acute Short of Breath x 1-2 weeks with any walking or activity, takes chills pt states sometimes athome her pulse ox is in the 80's Pt here today with SOB. Her pulse ox is dropping into the 80's. She does have COPD. She is using her inhaler sna neb with no relief. Pt states that the SOB is much worse with exertion. She drove herself here today. Review of patient's allergies indicates: Allergen Reactions Benadryl [Diphenhydramine] Food (See Comments) Honey, spearmint, BEES and bee products Semglee [Insulin Glargine] Itching and Rash Previously ok on Lantus Current Outpatient Medications Medication Sig Dispense Refill BD Pen Needle Short U/F 31G X 8 MM (Insulin Pen Needle) Use with Lantus Pen- Injector once daily 100Each 0 glipiZIDE ER 5 MG Oral Tablet Extended Release 24 Hour (Glucotrol XL) Take 2 Tablets by mouth in the morning. 180 Tablet 0 Lisinopril 40 MG Oral Tablet Take 1 Tablet by mouth in the morning. 90 Tablet 1 Accu-Chek Guide w/Device Kit Use as directed. Use to test sugars up to 4 times a day. E11.9 1 Kit 0 Accu-Chek Softclix Lancets Use to test sugars up to 4 times a day. E11.9 400 Each 1 Fluticasone-Salmeterol 45-21 MCG/ACT Inhalation Aerosol (Advair HFA) Inhale 2 Puffs by mouth in themorning and 2 Puffs before bedtime. 36 g 1 Ventolin HFA 108 (90 Base) MCG/ACT Inhalation Aerosol Solution Inhale 2 Puffs by mouth every 4 hours as needed for Wheezing. 54 g 1 Gabapentin 100 MG Oral Capsule (Neurontin) Take 1 Capsule by mouth in the morning and 1 Capsule at noon and 1 Capsule before bedtime. 90 Capsule 1 Ipratropium-Albuterol 0.5-2.5 (3) MG/3ML Inhalation Solution (Duoneb) Inhale 3 mL via nebulizer every 6 hours as needed for Shortness of Breath. 100 mL 0 Lantus SoloStar 100 UNIT/ML Subcutaneous Solution Pen-injector Inject 22 Units under the skin at bedtime. Uses this as needed based on sugars Naproxen Sodium 220 MG Oral Tablet (Aleve) 2 at bedtime Accu-Chek Guide In Vitro Strip (Glucose Blood) Use to test sugars up to 4 times a day. E11.9 400 Strip 0 No current facility-administered medications for this visit. Past Medical History: Diagnosis Date COPD, group B, by GOLD 2017 classification ([facility]) 02/25/2021 Per COPD GOLD Classification DDD (degenerative disc disease), lumbar HTN, goal below 140/90 08/09/2020 Leg swelling 11/19/2020 Lumbar degenerative disc disease 08/09/2020 Type 2 diabetes mellitus with hemoglobin A1c goal of less than 8.0% ([facility]) 08/09/2020 Social History Socioeconomic History Marital status: Spouse name: Not on file Number of children: Not on file Years of education: Not on file Highest education level: Not on file Occupational History Not on file Tobacco Use Smoking status: Former Current packs/day: 0.25 Average packs/day: 0.3 packs/day for 56.0 years (14.0 ttl pk-yrs) Types: Cigarettes Smokeless tobacco: Never Tobacco comments: pt has tried patches, chantix and hives Vaping Use Vaping Use: Never used Substance and Sexual Activity Alcohol use: Not Currently Drug use: Never Sexual activity: Not on file Other Topics Concern Not on file Social History Narrative Social Determinants of Health Financial Resource Strain: Not on file Food Insecurity: No Food Insecurity (01/08/2022) Hunger Vital Sign Worried About Running Out of Food in the Last Year: Never true Ran Out of Food in the Last Year: Never true Transportation Needs: Not on file Physical Activity: Not on file Stress: Not on file Social Connections: Not on file Intimate Partner Violence: Not on file Housing Stability: Not on file O:Blood pressure 150/84, pulse 80, temperature 36.4 C (97.6 F), resp. rate 16, height 1.613 m (5' 3.5"), weight 108.9 kg (240 lb), SpO2 94%. GENERAL: alert and mild distress HEART: regular rate & rhythm, no murmur, and no gallops LUNGS: lungs clear to auscultation, decreased breath sounds A:SOB (shortness of breath) (Primary) Type 2 diabetes mellitus with hemoglobin A1c goal of less than 8.0% ([facility]) Pt will go to ER. She refuses to go by ambulance. I told her that she can't drive herself over to [place]. She wants to go home and call ambulance from her home. Any questions/problems, please call. If anything changes, worsens, develops new sx, please call [facility]. Follow Up: Return if symptoms worsen or fail to improve. Yulisa Díaz PA-C documented in this encounter Nursing Notes * Kami Tarango, RN - 09/29/2023 11:19 AM EDT Acute Short of Breath x 1-2 weeks with any walking or activity, takes chills pt states sometimes athome her pulse ox is in the 80's documented in this encounter Plan of Treatment Health Maintenance Due Date Last Done Comments [...] (Season Ended) 2024 Lipid Panel 02/06/2028 02/05/2023, 080 08/2021, 11/16/2020, Additional history exists DXA Scan [...] Not on filedocumented as of this encounter Visit Diagnoses Diagnosis SOB (shortness of breath)- Primary Shortness of breath Type 2 diabetes mellitus with hemoglobin A1c goal of less than 8.0% (HCC) documented in this encounter Care Teams Social Media Coordinator Relationship Specialty Start Date End Date Andrew Siddiqi MD [address] [place] [address] [place] [phone] PCP - General Family Medicine 11/19/20 documented as of this encounter
--- OUTSIDE RECORDS SUMMARY | 2023-09-30 03:48 | External Medical Summary | Summary of Care ---
Author Name Unknown Organization [facility] Address [address] [place] [address] Phone [phone] Care Team Providers Care Homicide Squad Captain Name Role Phone Andrew Siddiqi MD Primary Care Provide r Reason for Visit * Reason Onset Date Comments Appointment 09/22/2023 Encounter Details Date Type Department Care Team (Late st Contact Info) Description 09/22/2023 Telephone Family [address] [place] [address] Andrew Siddiqi MD [address] [place] [address] [place] [phone] Appointment Allergies Active Allergy Reactions Criticality Noted [...] hemoglobin A1c goal of less than 8.0% ([facility]) Use as directed. Use to test sugars [...] B, by GOLD 2017 classification ([facility]) Inhale 2 Puffs by mouth in the morning and 2 Puffs before bedtime. 36 g 1 04/02/2023 Active Ventolin HFA 108 (90 Base) MCG/ACT Inhalation Aerosol SolutionIndications:C OPD, group B, by GOLD 2017 classification ([facility]) Inhale 2 Puffs by mouth [...] hemoglobin A1c goal of less than 8.0% ([facility]) Inject 22 Units under the skin at [...] 11:40 AM EDT Office Visit Family Medicine [address] [place] [phone] Yulisa Díaz PA-C [address] [place] [address] [place] [phone] Health Maintenance Due Date Last Done Comments [...] filedocumented as of this encounter Care Teams Homicide Squad Captain Relationship Specialty Start Date End Date Andrew Siddiqi MD [address] [place] [address] [place] [phone] PCP - General Family Medicine 11/19/20 documented as of this encounter
--- OUTSIDE RECORDS SUMMARY | 2023-09-30 03:49 | External Medical Summary | Summary of Care ---
Author Name Unknown Organization [facility] Address [address] [place] [address] Phone [phone] Care Team Providers Care Drafting Instructor Name Role Phone Andrew Siddiqi MD Primary Care Provide r Reason for Visit * Reason Onset Date Comments Medication Refill 05/22/2023 Encounter Details Date Type Department Care Team (Late st Contact Info) Description 05/22/[address] [place] [address] Andrew Siddiqi MD [address] [place] [address] [place] [phone] Medication Refill Allergies Active Allergy Reactions Criticality Noted Date [...] HFA)Indications:COPD, group B, by GOLD 2017 classification ([facility]) Inhale 2 Puffs by mouth in the morning and 2 Puffs before bedtime. 36 g 1 04/02/2023 Active Ventolin HFA 108 (90 Base) MCG/ACT Inhalation Aerosol SolutionIndications:C OPD, group B, by GOLD 2017 classification ([facility]) Inhale 2 Puffs by mouth every [...] hemoglobin A1c goal of less than 8.0% ([facility]) Inject 22 Units under the skin at bedtime. 30 mL 2 05/20/2023 Active documented as of this encounter (statuses [...] encounter Miscellaneous Notes * Telephone Encounter - Livier Rocha circuits engineer - 05/22/2023 4:54 PM EST Pt needs solution for her nebulizer she can barely breath Please send rx fred Thank you for your assistance Livier Rocha Business Assistant II [facility] ([facility] (Former[facility]) 05/22/2023,4:55 PM documented in this encounter Plan of Treatment Upcoming Encounters Date Type Department Care Team (Late st Contact Info) Description 06/23/2023 7:20 AM EST Office Visit Family Medicine [address] [place] [address] Andrew Siddiqi MD [address] [place] [address] [place] [address] Health Maintenance Due Date [...] (FLU shot) (#1) 2023 HbA1c 08/08/2023 02/05/2023, 08/2021, 05/22/2021, Additional history exists Albumin/Creatinine Ratio 02/06/2024 023, 01/15/2022, 11/19/2020 GFR 02/06/2024 02/05/2023, 080 08/2021, 05/22/2021, Additional history exists O2 ASSESSMENT [...] filedocumented as of this encounter Care Teams Drafting Instructor Relationship Specialty Start Date End Date Andrew Siddiqi MD [address] [place] [address] [place] [phone] PCP - General Family Medicine 11/19/20 documented as of this encounter
--- OUTSIDE RECORDS SUMMARY | 2023-09-30 03:49 | External Medical Summary | Summary of Care ---
Author Name Unknown Organization [facility] Address [address] [place] [address] Phone [phone] Care Team Providers Care Senior Planner Name Role Phone Andrew Siddiqi MD Primary Care Provide r Reason for Visit * Reason Onset Date Comments Medication Refill 05/20/2023 Encounter Details Date Type Department Care Team (Late st Contact Info) Description 05/20/[address] [place] [phone] Andrew Siddiqi MD [address] [place] [address] [place] [address] Medication Refill Allergies Active Allergy Reactions Criticality Noted Date Comments Diphenhydramine 08/09/2020 Food (See Comments) 01/02/2021 Honey, spearmint, BEES and bee products Insulin Glargine Itching,Rash 10/07/2022 Previously ok on Lantus documented as of this encounter (statuses as of 05/21/2023) Medications Medication Sig Dispensed Refills Start Date [...] HFA)Indications:COPD, group B, by GOLD 2017 classification ([facility]) Inhale 2 Puffs by mouth in the morning and 2 Puffs before bedtime. 36 g 1 04/02/2023 Active Ventolin HFA 108 (90 Base) MCG/ACT Inhalation Aerosol SolutionIndications:C OPD, group B, by GOLD 2017 classification ([facility]) Inhale 2 Puffs by mouth every 4 hours as needed for Wheezing. 54 g 1 04/02/2023 Active Gabapentin 100 MG Oral Capsule (Neurontin)Indication s:Lumbar degenerative disc disease,Chronic bilateral low back pain with left-sided sciatica Take 1 Capsule by mouth in the morning and 1 Capsule at noon and 1 Capsule before bedtime. 90 Capsule 1 05/20/2023 Active documented as of this encounter (statuses as of 05/21/2023) Active Problems Problem Noted Date Diagnosed Date [...] as of this encounter (statuses as of 05/21/2023) Resolved Problems Problem Noted Date Diagnosed Date Resolved Date COPD, severity to be determined 08/09/2020 02/28/2021 Overview: Per COPD GOLD Classification documented as of this encounter (statuses as of 05/21/2023) Social History Tobacco Use Types Packs/Day Years [...] encounter Miscellaneous Notes * Telephone Encounter - Luz Chopra, [facility] - 05/21/2023 3:12 PM EST Patient Phone Numbers Attempted to contact patient to discuss establishing w/ MTM, no answer. Left message to return callto clinic. If no response, can consider warm hand off at upcoming PCP visit on 06/23/23. Luz Chopra RPh, PharmD Clinical Pharmacist - Director [facility] 05/21/2023, 3:13 PM [phone] * Telephone Encounter - Jon Hernandez LPN - 05/21/2023 1:44 PM EST Ended on 10/07/22 Semglee insulin gave her rash/issues 02/05/2023 (in office), Visit date not found (telemedicine) Next apt 06/23/2023 02/11/23 ref for Pharmacist Pt cancelled 03/17/23 apt Baldo can we get her rescheduled and talk about Ozempic medication / insulin * Telephone Encounter - Silva Xavier CPhT - 05/20/2023 11:24 AM EST Pt stating she did not have a reaction to this medication- it was the generic "off brand" for lantus Patient requesting refills for ozempic. Upon chart review, medication is listed as discontinued, with discontinuation reason as "adverse reaction". Please advise if you wish to continue this therapy for the patient. Thank you, Silva Xavier CPhT II Coal Conveyor Operator [facility] ([facility] (Former[facility]) 05/20/2023, 11:25 AM documented in this encounter Plan of Treatment Upcoming Encounters Date Type Department Care Team (Late st Contact Info) Description 06/23/2023 7:20 AM EST Office Visit Family [address] [place] [phone] Andrew Siddiqi MD [address] [place] [address] [place] [phone] Health Maintenance Due Date Last Done Comments [...] COPD 02/06/2024 02/05/2023 Lipid Panel 02/06/2028 02/05/2023, 08/0 08/2021, 11/16/2020, Additional history exists DXA Scan 06/25/2028 06/25/2021 GARDASIL-HPV IMMUNIZATION SERIES Aged Out No longer eligible based on patient's age to complete this topic MENINGOCOCCAL (MENACTRA/MENVEO) Aged Out No longer eligible based on patient's age to complete this topic documented as of this encounter Medical Devices Not on filedocumented as of this encounter Visit Diagnoses Diagnosis Type 2 diabetes mellitus with hemoglobin A1c goal of less than 8.0% (HCC) documented in this encounter Care Teams Senior Planner Relationship Specialty Start Date End Date Andrew Siddiqi MD [address] [place] [address] [place] [phone] PCP - General Family Medicine 11/19/20 documented as of this encounter
--- OUTSIDE RECORDS SUMMARY | 2023-09-30 03:49 | External Medical Summary | Summary of Care ---
Author Name Unknown Organization [facility] Address [address] [facility] [place] [address] Phone [phone] Care Team Providers Care Director On Air Name Role Phone Andrew Siddiqi MD Primary Care Provide r Reason for Visit * Reason Onset Date Comments Medication Refill 05/20/2023 Encounter Details Date Type Department Care Team (Late st Contact Info) Description 05/20/[address] [place] [address] Andrew Siddiqi MD [address] [place] [address] [place] [phone] Lumbar degenerative disc disease; Chronic bilateral low back pain with left-sided sciatica Allergies Active Allergy Reactions Criticality Noted Date Comments Diphenhydramine 08/09/2020 Food (See Comments) 01/02/2021 Honey, spearmint, BEES and bee products Insulin Glargine Itching,Rash 10/07/2022 Previously ok on Lantus documented as of this encounter (statuses as of 05/20/2023) Medications Medication Sig Dispensed Refills Start Date End Date Status Fluocinonide 0.05 % External Ointment Apply topically to hands 2-3 times daily as needed for rash 180 g 0 01/07/2021 Active Varenicline Tartrate 0.5 MG X 11 & 1 MG X 42 OralIndications:Ciga rette nicotine dependence without complication Take as directed on box. 53 Each 0 03/05/2022 Active BD Pen Needle Short U/F 31G X 8 MM (Insulin Pen Needle)Indications:T ype 2 diabetes mellitus with hemoglobin A1c goal [...] 0 09/17/2022 Active Lisinopril 40 MG Oral TabletIndications:HT N, goal below 140/90 Take 1 Tablet by mouth in the morning. 90 Tablet 1 09/17/2022 Active Accu-Chek Guide In Vitro Strip (Glucose Blood)Indications:Ty pe 2 diabetes mellitus with hemoglobin A1c [...] 1 Kit 0 10/07/2022 Active Accu-Chek Softclix LancetsIndications:T ype 2 diabetes mellitus with hemoglobin A1c goal of less than 8.0% (HCC) Use to test sugars up to 4 times a day. E11.9 400 Each 1 10/07/2022 Active Lantus SoloStar 100 UNIT/ML Subcutaneous Solution Pen-injectorIndicati ons:Type 2 diabetes mellitus with hemoglobin A1c goal of less than 8.0% (HCC) Inject 22 Units under the skin at bedtime. 30 mL 0 10/10/2022 Active Fluticasone-Salmeter ol 45-21 MCG/ACT Inhalation Aerosol (Advair HFA)Indications:COPD , group B, by GOLD 2017 classification ([facility]) Inhale 2 Puffs by mouth in the morning and 2 Puffs before bedtime. 36 g 1 04/02/2023 Active Ventolin HFA 108 (90 Base) MCG/ACT Inhalation Aerosol SolutionIndications: COPD, group B, by GOLD 2017 classification ([facility]) Inhale 2 Puffs by mouth every 4 hours as needed for Wheezing. 54 g 1 04/02/2023 Active Gabapentin 100 MG Oral Capsule (Neurontin)Indicatio ns:Lumbar degenerative disc disease,Chronic bilateral low back pain with left-sided sciatica Take 1 Capsule by mouth in the morning and 1 Capsule at noon and 1 Capsule before bedtime. 90 Capsule 1 05/20/2023 Active Gabapentin 100 MG Oral Capsule (Neurontin)Indicatio ns:Lumbar degenerative disc disease,Chronic bilateral low back pain with left-sided sciatica Take 1 Capsule by mouth in the morning and 1 Capsule at noon and 1 Capsule before bedtime. 90 Capsule 1 02/05/2023 Discontinue d(Refill) documented as of this encounter (statuses as of 05/20/2023) Active Problems Problem Noted Date Diagnosed Date [...] as of this encounter (statuses as of 05/20/2023) Resolved Problems Problem Noted Date Diagnosed Date Resolved Date COPD, severity to be determined 08/09/2020 02/28/2021 Overview: Per COPD GOLD Classification documented as of this encounter (statuses as of 05/20/2023) Social History Tobacco Use Types Packs/Day Years [...] Telephone Encounter - Andrew Siddiqi MD - 05/20/2023 11:26 AM EST Signed Prescriptions: Disp Refills Gabapentin 100 MG Oral Capsule (Neurontin) 90 Cap*1 Sig: Take 1 Capsule by mouth in the morning and 1 Capsule at noon and 1 Capsule before bedtime. Authorizing Provider: ANDREW SIDDIQI * Telephone Encounter - Silva Xavier CPhT - 05/20/2023 11:21 AM EST Did you pend patient's preferred pharmacy and medication before forwarding?yes Pharmacy: [id number] Pending Prescriptions: Disp Refills Gabapentin 100 MG Oral Capsule (Neurontin)90 Cap*1 Sig: Take 1 Capsule by mouth in the morning and 1 Capsule at noon and 1 Capsule before bedtime. Last Visit: 02/05/2023 (in office), Visit date not found (telemedicine) Next Visit: 06/23/2023 If no future appointments scheduled, and last appointment is greater than a year ago, please schedule patient for a follow-up appointment Last date the medication was ordered: 02/05/23 Is this request for a controlled substance?No Urine Drug Screen:No results found for this or any previous visit. Patient Phone Numbers Labs: Lab Results Component Value Date/Time CREAT 0.8 02/05/2023 10:39 AM CREAT 0.89 11/16/2019 12:00 AM POTASSIUM 4.4 02/05/2023 10:39 AM POTASSIUM 4.6 11/16/2019 12:00 AM TSH 2.31 11/16/2020 07:54 AM LDLCALC 102 02/05/2023 10:39 AM LDLCALC 117.20 01/25/2020 12:00 AM ALT 27 11/16/2020 07:54 AM HGBA1C 9.1 (H) 02/05/2023 10:39 AM HGBA1C 7.7 (A) 01/25/2020 12:00 AM documented in this encounter Plan of Treatment Upcoming Encounters Date Type Department Care Team (Late st Contact Info) Description 06/23/2023 7:20 AM EST Office Visit Family Medicine [address] [place] [address] Andrew Siddiqi MD [address] [place] [address] [place] [phone] Health Maintenance Due Date Last Done Comments [...] (FLU shot) (#1) 2023 HbA1c 08/08/2023 02/05/2023, 080 08/2021, 05/22/2021, Additional history exists Albumin/Creatinine Ratio 02/06/2024 023, 01/15/2022, 11/19/2020 GFR 02/06/2024 02/05/2023, 080 08/2021, 05/22/2021, Additional history exists O2 ASSESSMENT COMPLETED IN PAST YEAR FOR COPD 02/06/2024 02/05/2023 Lipid Panel 02/06/2028 02/05/2023, 080 08/2021, 11/16/2020, Additional history exists DXA Scan 06/25/2028 06/25/2021 GARDASIL-HPV IMMUNIZATION SERIES Aged Out No longer eligible based on patient's age to complete this topic MENINGOCOCCAL (MENACTRA/MENVEO) Aged Out No longer eligible based on patient's age to complete this topic documented as of this encounter Medical Devices Not on filedocumented as of this encounter Visit Diagnoses Diagnosis Lumbar degenerative disc disease Degeneration of lumbar or lumbosacral intervertebral disc Chronic bilateral low back pain with left-sided sciatica documented in this encounter Care Teams Director On Air Relationship Specialty Start Date End Date Andrew Siddiqi MD [address] [place] [address] [place] [phone] PCP - General Family Medicine 11/19/20 documented as of this encounter
--- OUTSIDE RECORDS SUMMARY | 2023-09-30 03:49 | External Medical Summary | Summary of Care ---
Author Name Unknown Organization [facility] Address [address] [place] [address] Phone [phone] Care Team Providers Care Machinist Supervisor Outside Name Role Phone Andrew Siddiqi MD Primary Care Provide r Reason for Visit * Reason Onset Date Comments Medication Refill 05/20/2023 Encounter Details Date Type Department Care Team (Late st Contact Info) Description 05/20/[address] [place] [address] Andrew Siddiqi MD [address] [place] [address] [place] [phone] Medication Refill Allergies Active [...] HFA)Indications:COPD, group B, by GOLD 2017 classification ([facility]) Inhale 2 Puffs by mouth in the morning and 2 Puffs before bedtime. 36 g 1 04/02/2023 Active Ventolin HFA 108 (90 Base) MCG/ACT Inhalation Aerosol SolutionIndications:C OPD, group B, by GOLD 2017 classification ([facility]) Inhale 2 Puffs by mouth [...] encounter Miscellaneous Notes * Telephone Encounter - Jon Hernandez LPN [...] patient. Thank you, Silva Xavier CPhT II Loan Services Professional [facility] ([facility]) (Formerly Telepharmacy) 05/20/2023, 11:25 AM documented in this encounter Plan of Treatment Upcoming Encounters Date Type Department Care Team (Late st Contact Info) Description 06/23/2023 7:20 AM EST Office Visit Family Medicine [address] [phone] Andrew Siddiqi MD [address] [place] [address] [place] [address] Health Maintenance Due Date [...] COVID-19 Vaccine ( season) 2023 06/20/2021, 05/23/2021 Influenza Vaccine (FLU [...] (HCC) documented in this encounter Care Teams Machinist Supervisor Outside Relationship Specialty Start Date End Date Andrew Siddiqi MD [address] [place] [address] [place] [address] PCP - General Family Medicine 11/19/20 documented as of this encounter
--- OUTSIDE RECORDS SUMMARY | 2023-09-30 03:49 | External Medical Summary | Summary of Care ---
Author Name Unknown Organization [facility] Address [address] [place] [address] Phone [phone] Care Team Providers Care Ball Points Inspector Name Role Phone Andrew Siddiqi MD Primary Care Provide r Reason for Visit * Reason Onset Date Comments Medication Refill 05/22/2023 Encounter Details Date Type Department Care Team (Late st Contact Info) Description 05/22/[address] [place] [address] Andrew Siddiqi MD [address] [place] [address] [place] [phone] Medication Refill Allergies Active [...] B, by GOLD 2017 classification ([facility]) Inhale 2 Puffs by mouth in the morning and 2 Puffs before bedtime. 36 g 1 04/02/2023 Active Ventolin HFA 108 (90 Base) MCG/ACT Inhalation Aerosol SolutionIndications:C OPD, group B, by GOLD 2017 classification ([facility]) Inhale 2 Puffs by mouth every [...] hemoglobin A1c goal of less than 8.0% ([facility]) Inject 22 Units under the skin [...] encounter Miscellaneous Notes * Telephone Encounter - Katerine Goel LPN - 05/25/2023 1:11 PM EST Pt is returning phone call. Reports that she has been sick for 3 weeks with and occasional cough, catching chills, running our of breath. States that when she is able to cough up a chunk of phlegm, it's a relief. Is running of of breath just walking from her kitchen to her bathroom. Pt rates SOB moderate to severe. Prescribed inhalers are not helping. Denies fever. [...] appointment until June when insurance switches to [employer]. Please advise. * Telephone Encounter - Emilee Nagel LPN - 05/25/2023 10:36 AM EST There is no nebulizer med on her med list. There's advair and ventolin inhalers. Please get the actual name of the med when pts call for a refill. Left message for pt to return my call. * Telephone Encounter - Livier Rocha service writer advisor - 05/22/2023 4:54 PM EST Pt needs solution for her nebulizer she can barely breath Please send rx fred Thank you for your assistance Livier Rocha Elevator Inspector II [facility] ([facility]) (Formerly Telepharmacy) 05/22/2023,4:55 PM documented in this encounter Plan of Treatment Upcoming Encounters Date Type Department Care Team (Late st Contact Info) Description 06/23/2023 7:20 AM EST Office Visit Family Medicine [address] [place] [address] Andrew Siddiqi MD [address] [place] [address] [place] [phone] Health Maintenance Due Date Last Done Comments [...] filedocumented as of this encounter Care Teams Ball Points Inspector Relationship Specialty Start Date End Date Andrew Siddiqi MD [address] [place] [address] [place] [phone] PCP - General Family Medicine 11/19/20 documented as of this encounter
--- OUTSIDE RECORDS SUMMARY | 2023-09-30 03:49 | External Medical Summary | Summary of Care ---
Author Name Unknown Organization [facility] Address [address] [place] [address] Phone [phone] Care Team Providers Care Financial Services Assistant Name Role Phone Andrew Siddiqi MD Primary Care Provide r Reason for Visit * Reason Onset Date Comments Medication Refill 09/16/2022 Encounter Details Date Type Department Care Team (Late st Contact Info) Description 09/16/2022 Refill Family [address] [place] [address] Andrew Siddiqi MD [address] [place] [address] [place] [phone] Type 2 diabetes mellitus with hemoglobin A1c goal of less than 8.0% ([facility]); Type 2 diabetes mellitus with hemoglobin A1c goal of less than 7.0% ([facility]); HTN, goal below 140/90 Allergies Active Allergy Reactions Criticality Noted Date Comments Diphenhydramine 08/09/2020 Food (See Comments) 01/02/2021 Honey, spearmint, BEES and bee products Insulin Glargine Itching,Rash 10/07/2022 Previously ok on Lantus documented as of this encounter (statuses as of 04/16/2023) Medications Medication Sig Dispensed Refills Start Date [...] hemoglobin A1c goal of less than 8.0% ([facility]) Use with Lantus Pen-Injector once daily 100 Each 0 09/17/2022 Active glipiZIDE ER 5 MG Oral Tablet Extended Release 24 Hour (Glucotrol XL)Indications:Type 2 diabetes mellitus with hemoglobin A1c goal of less than 8.0% ([facility]),Type 2 diabetes mellitus with hemoglobin A1c goal of less than 7.0% ([facility]) Take 2 Tablets by mouth in the morning. 180 Tablet 0 09/17/2022 Active Lisinopril 40 MG Oral TabletIndications:HT N, goal below 140/90 Take 1 Tablet by mouth in the morning. 90 Tablet 1 09/17/2022 Active OneTouch Verio w/Device KitIndications:Type 2 diabetes mellitus with hemoglobin A1c goal of less than 7.0% ([facility]) Use up to 3 times a day Dx E11.9 pt is on insulin 1 Kit 0 10/01/2020 3 Discontinue d(Medicatio n/Dose Changed) Lisinopril 40 MG Oral TabletIndications:HT N, goal below 140/90 Take 1 Tab by mouth daily. 90 Tab 3 10/05/2020 3 Discontinue d(Refill) OneTouch Delica Lancets 30GIndications:Type 2 diabetes mellitus with hemoglobin A1c goal of less than 8.0% ([facility]) Use to test blood sugars once a day dx e11.9 100 Each 3 12/12/2020 3 Discontinue d(Refill) OneTouch Verio In Vitro Strip (Glucose Blood)Indications:Ty pe 2 diabetes mellitus with hemoglobin A1c goal of less than 8.0% ([facility]) Use to test blood sugar once a day dx e11.9 100 Strip 3 12/12/2020 3 Discontinue d(Refill) Ventolin HFA 108 (90 Base) MCG/ACT Inhalation Aerosol SolutionIndications: COPD, group B, by GOLD 2017 classification ([facility]) Inhale 2 Puffs by mouth every 4 hours as needed for Wheezing. 54 g 0 05/23/2021 3 Discontinue d(Refill) Advair HFA 45-21 MCG/ACT Inhalation Aerosol (Fluticasone-Salmete rol)Indications:COPD , group B, by GOLD 2017 classification ([facility]) Inhale 2 Puffs by mouth 2 times a day. 36 g 0 05/23/2021 3 Discontinue d(Refill) glipiZIDE ER 5 MG Oral Tablet Extended Release 24 Hour (Glucotrol XL)Indications:Type 2 diabetes mellitus with hemoglobin A1c goal of less than 8.0% ([facility]),Type 2 diabetes mellitus with hemoglobin A1c goal of less than 7.0% ([facility]) Take 2 Tablets by mouth daily. 180 Tablet 3 06/17/2021 3 Discontinue d(Refill) Ozempic (1 MG/DOSE) 4 MG/3ML Subcutaneous Solution Pen-injector (Semaglutide (1 MG/DOSE))Indications :Type 2 diabetes mellitus with hemoglobin A1c goal of less than 8.0% ([facility]),Type 2 diabetes mellitus with hemoglobin A1c goal of less than 7.0% ([facility]) Inject 1 mg under the skin once a week. 9 mL 3 06/17/2021 3 Discontinue d(Refill) BD Pen Needle Short U/F 31G X 8 MM (Insulin Pen Needle)Indications:T ype 2 diabetes mellitus with hemoglobin A1c goal of less than 8.0% ([facility]) Use with Lantus Pen-Injector once daily 90 Each 1 08/05/2021 3 Discontinue d(Refill) Insulin Glargine Solostar 100 UNIT/ML Subcutaneous Solution Pen-injector (Lantus SoloStar)Indications :Type 2 diabetes mellitus with hemoglobin A1c goal of less than 8.0% ([facility]) Inject under the skin 22 Units at bedtime . 30 mL 1 01/20/2022 3 Discontinue d(Refill) OneTouch Verio w/Device Kit Use up to 4 times a day E11.9 1 Kit 0 05/02/2022 3 Discontinue d(Medicatio n/Dose Changed) OneTouch Delica Lancets 30GIndications:Type 2 diabetes mellitus with hemoglobin A1c goal of less than 8.0% ([facility]) Use to test blood sugars once a day dx e11.9 100 Each 0 09/17/2022 3 Discontinue d(Medicatio n/Dose Changed) OneTouch Verio In Vitro Strip (Glucose Blood)Indications:Ty pe 2 diabetes mellitus with hemoglobin A1c goal of less than 8.0% (HCC) Use to test blood sugar once a day dx e11.9 100 Strip 0 09/17/2022 3 Discontinue d(Medicatio n/Dose Changed) Insulin Glargine Solostar 100 UNIT/ML Subcutaneous Solution Pen-injector (Lantus SoloStar)Indications :Type 2 diabetes mellitus with hemoglobin A1c goal of less than 8.0% (HCC) Inject 22 Units under the skin at bedtime. 30 mL 0 09/17/2022 3 Discontinue d(Adverse reaction) Ozempic (1 MG/DOSE) 4 MG/3ML Subcutaneous Solution Pen-injector (Semaglutide (1 MG/DOSE))Indications :Type 2 diabetes mellitus with hemoglobin A1c goal of less than 8.0% (HCC),Type 2 diabetes mellitus with hemoglobin A1c goal of less than 7.0% (HCC) Inject 1 mg under the skin once a week. 9 mL 0 09/17/2022 3 Discontinue d(Adverse reaction) documented as of this encounter (statuses as of 04/16/2023) Active Problems Problem Noted Date Diagnosed Date [...] as of this encounter (statuses as of 04/16/2023) Resolved Problems Problem Noted Date Diagnosed Date Resolved Date COPD, severity to be determined 08/09/2020 02/28/2021 Overview: Per COPD GOLD Classification documented as of this encounter (statuses as of 04/16/2023) Social History Tobacco Use Types Packs/Day Years Used Date Smoking Tobacco: Every Day Cigarettes 0.3 56 Smokeless Tobacco: Never Comments:pt has tried patche s, chantix and hives Alcohol Use Standard Drinks/Week Comments Not Currently 0 (1 standard drink = 0.6 oz pur e alcohol) Sex and Gender Information Value Date Recorded Sex Assigned at Female 01/02/2021 12:50 PM EDT Gender Identity Female 01/02/2021 12:50 PM EDT Sexual Orientation Straight 01/02/2021 12 :50 PM EDT Job Start Date Occupation Industry Not on file Not on file Not on file documented as of this encounter Miscellaneous Notes * Telephone Encounter - Fanta Enrique PHARM Tech - 04/16/2023 5:37 PM EDT Received message from [facility] regarding patient needing labs. Patient had lab drawn on 02/05/2023. Thank you, Fanta Enrique Portfolio Consultant [facility] ([facility]) 04/16/2023,5:37 PM * Telephone Encounter - Chelsae Neri [facility] - 09/17/2022 1:06 PM EDTSigned Prescriptions: Disp Refills OneTouch Delica Lancets 30G 100 Ea*0 Sig: Use to test blood sugars once a day dx e11.9 Authorizing Provider: ANDREW SIDDIQI Ordering User: CHELSEA NERI OneTouch Verio In Vitro Strip (Glucose Blo*100 St*0 Sig: Use to test blood sugar once a day dx e11.9 Authorizing Provider: ANDREW SIDDIQI Ordering User: CHELSEA NERI Insulin Glargine Solostar 100 UNIT/ML Subc*30 mL 0 Sig: Inject 22 Units under the skin at bedtime. Authorizing Provider: ANDREW SIDDIQI Ordering User: CHELSEA NERI BD Pen Needle Short U/F 31G X 8 MM (Insuli*100 Ea*0 Sig: Use with Lantus Pen-Injector once daily Authorizing Provider: ANDREW SIDDIQI Ordering User: CHELSEA NERI Ozempic (1 MG/DOSE) 4 MG/3ML Subcutaneous *9 mL 0 Sig: Inject 1 mg under the skin once a week. Authorizing Provider: ANDREW SIDDIQI Ordering User: CHELSEA NERI glipiZIDE ER 5 MG Oral Tablet Extended Rel*180 Ta*0 Sig: Take 2 Tablets by mouth in the morning. Authorizing Provider: ANDREW SIDDIQI Ordering User: CHELSEA NERI Lisinopril 40 MG Oral Tablet 90 Tab*1 Sig: Take 1 Tablet by mouth in the morning. Authorizing Provider: ANDREW SIDDIQI Ordering User: CHELSEA NERI * Telephone Encounter - Chelsea Neri RPh - 09/17/2022 1:04 PM EDT Provided 90 days supply with 0 refill(s). Per refill protocol patient should have a1c on file within past 6 months. Reviewed AMP report, Care Gaps/Health Maintenance, medications list, and for any routine labs typically ordered for this patient. Lab orders placed. Please contact patient to advise of labs ordered for blood draw. Fasting is not required. Advise toobtain labs before requesting the next refill. Thanks, [place] Neri, PharmD Clinical Pharmacist [facility] [phone] 09/17/2022 1:04 PM * Telephone Encounter - Livier Rocha - 09/16/2022 9:53 AM EDT Did you pend patient's preferred pharmacy and medication before forwarding?yes Pharmacy: [facility], [address] [place] Pending Prescriptions: Disp Refills OneTouch Delica Lancets 30G 100 Ea*3 Sig: Use to test blood sugars once a day dx e11.9 OneTouch Verio In Vitro Strip (Glucose Bl*100 St*3 Sig: Use to test blood sugar once a day dx e11.9 Insulin Glargine Solostar 100 UNIT/ML Sub*30 mL 1 Sig: Inject 22 Units under the skin at bedtime. BD Pen Needle Short U/F 31G X 8 MM (Insul*90 Each1 Sig: Use with Lantus Pen-Injector once daily Ozempic (1 MG/DOSE) 4 MG/3ML Subcutaneous*9 mL 3 Sig: Inject 1 mg under the skin once a week. glipiZIDE ER 5 MG Oral Tablet Extended Re*180 Ta*3 Sig: Take 2 Tablets by mouth in the morning. Lisinopril 40 MG Oral Tablet 90 Tab*3 Sig: Take 1 Tablet by mouth in the morning. Last Visit: 01/22/2022 (in office), Visit date not found (telemedicine) Next Visit: Visit date not found If no future appointments scheduled, and last appointment is greater than a year ago, please schedule patient for a follow-up appointment Last date the medication was ordered: Is this request for a controlled substance?No Urine Drug Screen:No results found for this or any previous visit. Patient Phone Numbers Labs: Lab Results Component Value Date/Time CREAT 0.9 01/15/2022 04:00 PM CREAT 0.89 11/16/2019 12:00 AM POTASSIUM 4.4 01/15/2022 04:00 PM POTASSIUM 4.6 11/16/2019 12:00 AM TSH 2.31 11/16/2020 07:54 AM LDLCALC 100 01/15/2022 04:00 PM LDLCALC 117.20 01/25/2020 12:00 AM ALT 27 11/16/2020 07:54 AM HGBA1C 8.9 (H) 01/15/2022 04:00 PM HGBA1C 7.7 (A) 01/25/2020 12:00 AM documented in this encounter Plan of Treatment Upcoming Encounters Date Type Department Care Team (Late st Contact Info) Description 05/14/2023 10:40 AM EST Office Visit Family Medicine [address] [place] [address] Andrew Siddiqi MD [address] [place] [address] [place] [phone] Health Maintenance Due Date Last Done Comments [...] Not on filedocumented as of this encounter Results * (ABNORMAL) HEMOGLOBIN A1C (02/05/2023 10:39 AM EDT) Hemoglobin A1C 9.1(H) 4.0 - 5.6 % 02/05/2023 11:23 PM EDT [facility] Comment:The use of HbA1c to monitor glycemic status is based on normal hemoglobin and HbA composition. This test should not be used in patients with abnormal hemoglobin that affects the half life of the red blood cell or the in vivo glycation rates. Estimated Average Glucose 214(H) <126 mg/dL 02/05/2023 11:23 PM EDT [facility] Blood Venous blood specimen / Unknown Venipuncture / Unknown 02/05/2023 10:39 AM EDT 02/05/2023 10:40 AM EDT [place] Neri [facility] LAB BLOOD ORDERABL ES [facility] [address] [place] [address] documented in this encounter Visit Diagnoses Diagnosis Type 2 diabetes mellitus with hemoglobin A1c goal of less than 8.0% (HCC) Type 2 diabetes mellitus with hemoglobin A1c goal of less than 7.0% (HCC) HTN, goal below 140/90 Unspecified essential hypertension documented in this encounter Care Teams Financial Services Assistant Relationship Specialty Start Date End Date Andrew Siddiqi MD [address] [place] [address] [place] [phone] PCP - General Family Medicine 11/19/20 documented as of this encounter
--- OUTSIDE RECORDS SUMMARY | 2023-09-30 03:49 | External Medical Summary | Summary of Care ---
Author Name Unknown Organization [facility] Address [address] [place] [address] Phone [phone] Care Team Providers Care Rehabilitation Services Counselor Name Role Phone Andrew Siddiqi MD Primary Care Provide r Reason for Visit * Reason Onset Date Comments Medication Refill 05/22/2023 Encounter Details Date Type Department Care Team (Late st Contact Info) Description 05/22/2023 Refill Family [address] [place] [address] Andrew Siddiqi MD [address] [place] [address] [place] [phone] Allergies Active Allergy Reactions Criticality Noted Date [...] HFA)Indications:COPD, group B, by GOLD 2017 classification ([facility]) Inhale 2 Puffs by mouth in the morning and 2 Puffs before bedtime. 36 g 1 04/02/2023 Active Ventolin HFA 108 (90 Base) MCG/ACT Inhalation Aerosol SolutionIndications:C OPD, group B, by GOLD 2017 classification ([facility]) Inhale 2 Puffs by mouth every 4 [...] hemoglobin A1c goal of less than 8.0% ([facility]) Inject 22 Units under the skin at [...] as of this encounter Miscellaneous Notes * Addendum Note - Katerine Goel LPN [...] appointment until June when insurance switches to [employer] and thenabruptly disconnected the phone call. Pt does have a nebulizer device. Pt previously took Ipratropium-Albuterol 0.5- 2.5 (3) MG/3 ML; use 4 times daily PRN as per 08/09/2022 [facility] record transfer, page 2. Med pended. Please [...] call. * Telephone Encounter - Livier Rocha ultimate hoops scoreboard operator - 05/22/2023 4:54 PM EST Pt needs solution for her nebulizer she can barely breath Please send rx fred Thank you for your assistance Livier Rocha Barber II [facility] ([facility]) (Formerly Telepharm[facility]) 05/22/2023,4:55 PM documented in this encounter Plan of Treatment Upcoming Encounters Date Type Department Care Team (Late st Contact Info) Description 06/23/2023 7:20 AM EST Office Visit Family Medicine [address] [phone] Andrew Siddiqi MD [address] [place] [address] [place] [phone] Health Maintenance Due Date [...] filedocumented as of this encounter Care Teams Rehabilitation Services Counselor Relationship Specialty Start Date End Date Andrew Siddiqi MD [address] [place] [address] [place] [phone] PCP - General Family Medicine 11/19/20 documented as of this encounter
--- OUTSIDE RECORDS SUMMARY | 2023-09-30 03:49 | External Medical Summary | Summary of Care ---
Author Name Unknown Organization [facility] Address [address] [place] [address] Phone [phone] Care Team Providers Care Log Handler Name Role Phone Andrew Siddiqi MD Primary Care Provide r Reason for Visit * Reason Onset Date Comments Medication Refill 05/22/2023 Encounter Details Date Type Department Care Team (Late st Contact Info) Description 05/22/[address] [place] [address] Andrew Siddiqi MD [address] [place] [address] [place] [phone] Medication Refill Allergies Active [...] encounter Miscellaneous Notes * Telephone Encounter - Emilee Nagel LPN - 05/25/2023 10:36 AM EST There is no nebulizer med on her med list. There's advair and ventolin inhalers. Please get the actual name of the med when pts call for a refill. Left message for pt to return my call. * Telephone Encounter - Livier Rocha wool fleece grader - 05/22/2023 4:54 PM EST Pt needs solution for her nebulizer she can barely breath Please send rx fred Thank you for your assistance Livier Rocha Vice President [employer] [facility] ([facility]) (Formerly Tele[facility]acy) 05/22/2023,4:55 PM documented in this encounter Plan of Treatment Upcoming Encounters Date Type Department Care Team (Late st Contact Info) Description 06/23/2023 7:20 AM EST Office Visit Family Medicine [address] [place] [address] Andrew Siddiqi MD [address] [place] [address] [place] [phone] Health Maintenance Due Date Last Done Comments [...] filedocumented as of this encounter Care Teams Log Handler Relationship Specialty Start Date End Date Andrew Siddiqi MD [address] [place] [address] [place] [phone] PCP - General Family Medicine 11/19/20 documented as of this encounter
--- OUTSIDE RECORDS SUMMARY | 2023-09-30 03:49 | External Medical Summary | Summary of Care ---
Author Name Unknown Organization [facility] Address [address] [place] [address] Phone [phone] Care Team Providers Care Training Facilitator Name Role Phone Andrew Siddiqi MD Primary Care Provide r Reason for Visit * Reason Onset Date Comments Medication Refill 05/20/2023 Encounter Details Date Type Department Care Team (Late st Contact Info) Description 05/20/[address] [place] [address] Andrew Siddiqi MD [address] [place] [address] [place] [phone] Type 2 diabetes mellitus with hemoglobin A1c goal of less than 8.0% ([facility]) Allergies Active Allergy Reactions Criticality Noted Date [...] day. E11.9 400 Each 1 10/07/2022 Active Fluticasone-Salmeter ol 45-21 MCG/ACT Inhalation Aerosol (Advair HFA)Indications:COPD , group B, by GOLD 2017 classification ([facility]) Inhale 2 Puffs by mouth in the morning and 2 Puffs before bedtime. 36 g 1 04/02/2023 Active Ventolin HFA 108 (90 Base) MCG/ACT Inhalation Aerosol SolutionIndications: COPD, group B, by GOLD 2017 classification ([facility]) Inhale 2 Puffs by mouth [...] at bedtime. 30 mL 2 05/20/2023 Active Lantus SoloStar 100 UNIT/ML Subcutaneous Solution Pen-injectorIndicati ons:Type 2 diabetes mellitus with hemoglobin A1c goal of less than 8.0% (HCC) Inject 22 Units under the skin at bedtime. 30 mL 0 10/10/2022 3 Discontinue d(Refill) documented as of this encounter [...] encounter Miscellaneous Notes * Telephone Encounter - Robin Díaz [facility] - 05/20/2023 4:40 PM EST Signed Prescriptions: Disp Refills Lantus SoloStar 100 UNIT/ML Subcutaneous S*30 mL 2 Sig: Inject 22 Units under the skin at bedtime. Authorizing Provider: ANDREW SIDDIQI User: ROBIN DÍAZ * Telephone Encounter - Silva Xavier CPhT - 05/20/2023 11:26 AM EST Pt stating this needs to be brand- pt had reaction to generic pharmacy dispensed for her Did you pend patient's preferred pharmacy and medication before forwarding?yes Pharmacy: [id number] Pending Prescriptions: Disp Refills Lantus SoloStar 100 UNIT/ML Subcutaneous *30 mL 0 Sig: Inject 22 Units under the skin at bedtime. Last Visit: 02/05/2023 (in office), Visit date not found (telemedicine) Next Visit: 06/23/2023 If no future appointments scheduled, and last appointment is greater than a year ago, please schedule patient for a follow-up appointment Last date the medication was ordered: 10/10/22 Is this request for a controlled substance?No [...] 7:20 AM EST Office Visit Family Medicine [address] [phone] Andrew Siddiqi MD [address] [place] [address] [place] [phone] Health Maintenance Due Date Last Done Comments [...] Foot Exam 01/08/2023 01/08/2022, 11/19/2020 COVID-19 Vaccine (3 - season) 2023 06/20/2021, 05/23/2021 Influenza Vaccine [...] (HCC) documented in this encounter Care Teams Training Facilitator Relationship Specialty Start Date End Date Andrew Siddiqi MD [address] [place] [address] [place] [phone] PCP - General Family Medicine 11/19/20 documented as of this encounter
--- OUTSIDE RECORDS SUMMARY | 2023-09-30 03:50 | External Medical Summary | Summary of Care ---
Author Name Unknown Organization [facility] Address [address] [place] [facility] [place] [facility] [place] [address] Phone [phone] Care Team Providers Care Teachers' Aide Name Role Phone Andrew Siddiqi MD Primary Care Provide r Reason for Visit * Reason Onset Date Comments Medication Refill 09/16/2022 Encounter Details Date Type Department Care Team (Late st Contact Info) Description 09/16/2022 Refill Family [address] [place] [address] Andrew Siddiqi MD [address] [place] [address] [place] [phone] Type 2 diabetes mellitus with hemoglobin A1c goal of less than 8.0% ([facility]); Type 2 diabetes mellitus with hemoglobin A1c goal of less than 7.0% (HCC); HTN, goal below 140/90 Allergies Active Allergy Reactions Criticality Noted Date Comments Diphenhydramine 08/09/2020 Food (See Comments) 01/02/2021 Honey, spearmint, BEES and bee products documented as of this encounter (statuses as [...] hemoglobin A1c goal of less than 8.0% ([facility]) Use with Lantus Pen-Injector once daily 100 Each 0 09/17/2022 Active glipiZIDE ER 5 MG Oral Tablet Extended Release 24 Hour (Glucotrol XL)Indications:Type 2 diabetes mellitus with hemoglobin A1c goal of less than 8.0% ([facility]),Type 2 diabetes mellitus with hemoglobin A1c goal of less than 7.0% ([facility]) Take 2 Tablets by mouth in the morning. 180 Tablet 0 09/17/2022 Active Lisinopril 40 MG Oral TabletIndications:HT N, goal below 140/90 Take 1 Tablet by mouth in the morning. 90 Tablet 1 09/17/2022 Active OneTouch Verio w/Device KitIndications:Type 2 diabetes mellitus with hemoglobin A1c goal of less than 7.0% ([facility]) Use up to 3 times a day Dx E11.9 pt is on insulin 1 Kit 0 10/01/2020 3 Discontinue d(Medicatio n/Dose Changed) Lisinopril 40 MG Oral TabletIndications:HT N, goal below 140/90 Take 1 Tab by mouth daily. 90 Tab 3 10/05/2020 3 Discontinue d(Refill) OneTouch Delica Lancets 30GIndications:Type 2 diabetes mellitus with hemoglobin A1c goal of less than 8.0% ([facility]) Use to test blood sugars once a day dx e11.9 100 Each 3 12/12/2020 3 Discontinue d(Refill) OneTouch Verio In Vitro Strip (Glucose Blood)Indications:Ty pe 2 diabetes mellitus with hemoglobin A1c goal of less than 8.0% ([facility]) Use to test blood sugar once a day dx e11.9 100 Strip 3 12/12/2020 3 Discontinue d(Refill) Ventolin HFA 108 (90 Base) MCG/ACT Inhalation Aerosol SolutionIndications: COPD, group B, by GOLD 2017 classification ([facility]) Inhale 2 Puffs by mouth every 4 hours as needed for Wheezing. 54 g 0 05/23/2021 3 Discontinue d(Refill) Advair HFA 45-21 MCG/ACT Inhalation Aerosol (Fluticasone-Salmete rol)Indications:COPD , group B, by GOLD 2017 classification ([facility]) Inhale 2 Puffs by mouth 2 times a day. 36 g 0 05/23/2021 3 Discontinue d(Refill) glipiZIDE ER 5 MG Oral Tablet Extended Release 24 Hour (Glucotrol XL)Indications:Type 2 diabetes mellitus with hemoglobin A1c goal of less than 8.0% ([facility]),Type 2 diabetes mellitus with hemoglobin A1c goal of less than 7.0% ([facility]) Take 2 Tablets by mouth daily. 180 Tablet 3 06/17/2021 3 Discontinue d(Refill) Ozempic (1 MG/DOSE) 4 MG/3ML Subcutaneous Solution Pen-injector (Semaglutide (1 MG/DOSE))Indications :Type 2 diabetes mellitus with hemoglobin A1c goal of less than 8.0% ([facility]),Type 2 diabetes mellitus with hemoglobin A1c goal of less than 7.0% ([facility]) Inject 1 mg under the skin once a week. 9 mL 3 06/17/2021 3 Discontinue d(Refill) BD Pen Needle Short U/F 31G X 8 MM (Insulin Pen Needle)Indications:T ype 2 diabetes mellitus with hemoglobin A1c goal of less than 8.0% ([facility]) Use with Lantus Pen-Injector once daily 90 Each 1 08/05/2021 3 Discontinue d(Refill) Insulin Glargine Solostar 100 UNIT/ML Subcutaneous Solution Pen-injector (Lantus SoloStar)Indications :Type 2 diabetes mellitus with hemoglobin A1c goal of less than 8.0% ([facility]) Inject under the skin 22 Units at bedtime . 30 mL 1 01/20/2022 3 Discontinue d(Refill) OneTouch Verio w/Device Kit Use up to 4 times a day E11.9 1 Kit 0 05/02/2022 3 Discontinue d(Medicatio n/Dose Changed) OneTouch Delica Lancets 30GIndications:Type 2 diabetes mellitus with hemoglobin A1c goal of less than 8.0% ([facility]) Use to test blood sugars once a [...] Active Problems Problem Noted Date Diagnosed Date COPD, group B, by GOLD 2017 [...] encounter Miscellaneous Notes * Telephone Encounter - Chelsea Neri, [facility] - 09/17/2022 1:06 PM EDTSigned Prescriptions: Disp [...] NERI * Telephone Encounter - Chelsea Neri RP - 09/17/2022 1:04 PM EDT Provided 90 [...] refill. Thanks, Chelsea Neri, PharmD Clinical Pharmacist [facility] [phone] 09/17/2022 1:04 PM * Telephone Encounter - Livier Rocha - 09/16/2022 9:53 AM EDT Did you pend patient's preferred pharmacy and medication before forwarding?yes Pharmacy: [facility], [address] [place] Pending Prescriptions: Disp Refills [...] 10:40 AM EST Office Visit Family Medicine [address] [place] [phone] Andrew Siddiqi MD [address] [place] [address] [place] [phone] Health Maintenance Due Date Last Done Comments [...] 5.6 % 02/05/2023 11:23 PM EDT LABORATORY C Comment:The use of HbA1c to monitor glycemic status is based on normal hemoglobin and HbA composition. This test should not be used in patients with abnormal hemoglobin that affects the half life of the red blood cell or the in vivo glycation rates. Estimated Average Glucose 214(H) <126 mg/dL 02/05/2023 11:23 PM EDT LABORATORY GM Blood Venous blood specimen / Unknown Venipuncture / Unknown 02/05/2023 10:39 AM EDT 02/05/2023 10:40 AM EDT Chelsea Neri [facility] LAB BLOOD ORDERABL ES LABORATORY [facility] [address] [place] [address] documented in this encounter Visit Diagnoses Diagnosis Type 2 diabetes mellitus with hemoglobin A1c goal of less than 8.0% (HCC) Type 2 diabetes mellitus with hemoglobin A1c goal of less than 7.0% (HCC) HTN, goal below 140/90 Unspecified essential hypertension documented in this encounter Care Teams Teachers' Aide Relationship Specialty Start Date End Date Andrew Siddiqi MD [address] [place] [address] [place] [phone] PCP - General Family Medicine 11/19/20 documented as of this encounter
--- OUTSIDE RECORDS SUMMARY | 2023-09-30 03:50 | External Medical Summary | Summary of Care ---
Author Name Unknown Organization [facility] Address [address] [place] [address] Phone [phone] Care Team Providers Care Battalion Chief Name Role Phone Andrew Siddiqi MD Primary Care Provide r Reason for Referral * Medication Prior Authorization - Pending Review Specialty Diagnoses / Procedures Referred By Sharif t Referred To Contact Diagnoses COPD, group B, by GOLD 2017 classification ([facility]) Carolyn Anthony, [facility] [address] [facility] [place] [address] Referral ID Status Reason Start Date Expiration Date V isits Requested Visits Authorized [id number] Pending Review [id number] Reason for Visit * Reason Onset Date Comments Medication Refill 04/02/2023 Encounter Details Date Type Department Care Team (Late st Contact Info) Description 04/02/2023 Refill Family [address] [place] [address] Andrew Siddiqi MD [address] [place] [address] [place] [phone] COPD, group B, by GOLD 2017 classification ([facility]) Allergies Active Allergy Reactions Criticality Noted Date Comments Diphenhydramine 08/09/2020 Food (See Comments) 01/02/2021 Honey, spearmint, BEES and bee products Insulin Glargine Itching,Rash 10/07/2022 Previously ok on Lantus documented as of this encounter (statuses as of 04/07/2023) Medications Medication Sig Dispensed Refills Start Date [...] at bedtime. 30 mL 0 10/10/2022 Active Gabapentin 100 MG Oral Capsule (Neurontin)Indicatio ns:Lumbar degenerative disc disease,Chronic bilateral low back pain with left-sided sciatica Take 1 Capsule by mouth in the morning and 1 Capsule at noon and 1 Capsule before bedtime. 90 Capsule 1 02/05/2023 Active Fluticasone-Salmeter ol 45-21 MCG/ACT Inhalation Aerosol (Advair HFA)Indications:COPD , group B, by GOLD 2017 classification ([facility]) Inhale 2 Puffs by mouth in the morning and 2 Puffs before bedtime. 36 g 1 04/02/2023 Active Ventolin HFA 108 (90 Base) MCG/ACT Inhalation Aerosol SolutionIndications: COPD, group B, by GOLD 2017 classification ([facility]) Inhale 2 Puffs by mouth every 4 hours as needed for Wheezing. 54 g 1 04/02/2023 Active Ventolin HFA 108 (90 Base) MCG/ACT Inhalation Aerosol SolutionIndications: COPD, group B, by GOLD 2017 classification ([facility]) Inhale 2 Puffs by mouth every 4 hours as needed for Wheezing. 54 g 0 05/23/2021 3 Discontinue d(Refill) Fluticasone-Salmeter ol 45-21 MCG/ACT Inhalation Aerosol (Advair HFA)Indications:COPD , group B, by GOLD 2017 classification ([facility]) Inhale 2 Puffs by mouth in the morning and 2 Puffs before bedtime. 36 g 0 02/05/2023 3 Discontinue d(Refill) documented as of this encounter (statuses as of 04/07/2023) Active Problems Problem Noted Date Diagnosed Date [...] as of this encounter (statuses as of 04/07/2023) Resolved Problems Problem Noted Date Diagnosed Date Resolved Date COPD, severity to be determined 08/09/2020 02/28/2021 Overview: Per COPD GOLD Classification documented as of this encounter (statuses as of 04/07/2023) Social History Tobacco Use Types Packs/Day Years [...] Telephone Encounter - Jon Hernandez LPN - 04/07/2023 8:58 AM EDT Denial: Fluticasone The drug you asked for is not listed in your preferred drug list (formulary). The preferred drug(s), you may not have tried, are: Advair Diskus powder for inhalation, Breo Ellipta powder for inhalation, fluticasone propionate- salmeterol inhalation powder blister, Symbicort HFA aerosol inhaler, and Wixela Inhub powder for inhalation. Your provider needs to give us medical reasons why the preferreddrug(s) would not work for you and/or would have bad side effects. Sometimes a preferred drug needsmore review for approval. Additionally, some preferred drugs listed may be the same drugs with different strengths or forms. [employer] may only require one strength or form of that drug to be tried. This decision was from [employer] Non-Formulary Exceptions Coverage Policy. * Telephone Encounter - Carolyn Anthony RPh - 04/02/2023 9:23 PM EDTSigned Prescriptions: Disp Refills Fluticasone-Salmeterol 45-21 MCG/ACT Inhal*36 g 1 Sig: Inhale 2 Puffs by mouth in the morning and 2 Puffs before bedtime.Authorizing Provider: Mark SIDDIQI User: CAROLYN ANTHONY Ventolin HFA 108 (90 Base) MCG/ACT Inhalat*54 g 1 Sig: Inhale 2 Puffsby mouth every 4 hours as needed for Wheezing.Authorizing Provider: Mark SIDDIQI User: CAROLYN ANTHONY * Telephone Encounter - MARSHAL [place] Tech - 04/02/2023 12:24 PM EDT Did you pend patient's preferred pharmacy and medication before forwarding?yes Pharmacy: [facility] [id number] Pending Prescriptions: Disp Refills Fluticasone-Salmeterol 45-21 MCG/ACT Inha*36 g 0 Sig: Inhale 2 Puffs by mouth in the morning and 2 Puffs before bedtime. Ventolin HFA 108 (90 Base) MCG/ACT Inhala*54 g 0 Sig: Inhale 2 Puffs by mouth every 4 hours as needed for Wheezing. Last Visit: 02/05/2023 (in office), Visit date not found (telemedicine) Next Visit: 05/14/2023 If no future appointments scheduled, and last appointment is greater than a year ago, please schedule patient for a follow-up appointment Last date the medication was ordered: 02-05-23,05-23-21 Is this request for a controlled substance?No [...] 10:40 AM EST Office Visit Family Medicine [address] [place] [address] Andrew Siddiqi MD [address] [place] [address] [place] [phone] Health Maintenance Due Date Last Done Comments [...] PFT 08/16/2020 *BASELINE EKG FOR HTN 06/24/2021 DIABETES-EYE EXAM 10/21/2022 10/21/2021, 02/28/2020 Depression Screening 01/08/2023 01/08/2022 Diabetic Foot Exam 01/08/2023 01/08/2022, 11/19/2020 COVID-19 Vaccine (3 - season) 2023 06/20/2021, 05/23/2021 Influenza Vaccine (FLU shot) (#1) 2023 HbA1c 08/08/2023 02/05/2023, 08/0 08/2021, 05/22/2021, Additional history exists Albumin/Creatinine Ratio 02/06/2024 023, 01/15/2022, 11/19/2020 GFR 02/06/2024 02/05/2023, 08/2021, 05/22/2021, Additional history exists O2 ASSESSMENT COMPLETED IN PAST YEAR FOR COPD 02/06/2024 02/05/2023 Lipid Panel 02/06/2028 02/05/2023, 08/2021, 11/16/2020, Additional history exists DXA Scan 06/25/2028 06/25/2021 GARDASIL-HPV IMMUNIZATION SERIES Aged Out No longer eligible based on patient's age to complete this topic MENINGOCOCCAL (MENACTRA/MENVEO) Aged Out No longer eligible based on patient's age to complete this topic documented as of this encounter Medical Devices Not on filedocumented as of this encounter Visit Diagnoses Diagnosis COPD, group B, by GOLD 2017 classification (HCC) documented in this encounter Care Teams Battalion Chief Relationship Specialty Start Date End Date Andrew Siddiqi MD [address] [place] [address] [place] [phone] PCP - General Family Medicine 11/19/20 documented as of this encounter
[2023-09-30 07:36] LABS: Basophils # (auto) 0.03 K/uL (0.00-0.20); Basophils % (auto) 0.5 %; Eosinophils # (auto) 0.01 K/uL (0.00-0.50); Eosinophils % (auto) 0.2 %; Hematocrit (blood only) 38.9 % (37.0-47.0); Hemoglobin 11.6 g/dl (12.0-16.0); Immature Granulocytes # (auto) 0.07 K/uL (0.01-0.20); Immature Granulocytes % (auto) 1.2 %; Lymphocytes # (auto) 0.61 K/uL (1.20-3.40); Lymphocytes % (auto) 10.7 %; Mean Corpuscular Hemoglobin 23.9 pg (25.0-34.0); Mean Corpuscular Hgb Conc 29.8 g/dL (32.0-36.0); Mean Platelet Volume 8.9 fL (9.4-12.4); Monocytes # (auto) 0.03 K/uL (0.11-0.59); Monocytes % (auto) 0.5 %; Neutrophils # (auto) 4.95 K/uL (1.40-6.50); Neutrophils % (auto) 86.9 %; Platelet Count 153 K/uL (130-400); RDW Coefficient of Variation 17.3 % (11.5-14.5); RDW Standard Deviation 49.9 fL (36.4-46.3); Red Blood Count 4.86 M/uL (4.20-5.40)
[2023-09-30 07:48] LABS: Calcium 9.4 mg/dl (8.6-10.3); Magnesium 1.9 mg/dl (1.7-2.4); Potassium 4.2 mmol/L (3.5-5.1)
[2023-09-30 07:54] LABS: BUN Creatinine Ratio 19.3 (10-20); Est GFR (African American) 75.5 ml/min; Est GFR (Non-African American) 65.2 ml/min; Phosphorus 4.4 mg/dl (2.5-4.9)
--- NOTE | 2023-09-30 07:55 | Cardiology Consultation ---
Date of Consultation September 30, 2023 Assessment & Plan (1) Acute exacerbation of chronic obstructive pulmonary disease: (2) New onset atrial fibrillation: (3) Hypertension: Plan IMPRESSION: 73-year-old female admitted for COPD exacerbation found to be in atrial fib rillation of unknown duration with controlled ventricular response. PLAN: Persistent AFIB: Newly dx AFIB with controlled ventricular response, asymptomatic-- I suspect the patient has been in AFIB for quite some time. CHADSVASC score of 4 (Age, female, HTN, DM)--No prior history of bleeding. Start Eliquis 5 mg BID for stroke prevention with AFIB. Will avoid beta mulugeta at this time as rates are currently controlled and patient has active wheeze. I suspect as COPD exacerbation is treated rates will come down further Patient likely has a degree of diastolic dysfunction. Will give an addition 20 mg of IV Lasix to see if this improves her breathing as well as lower extremity edema. Gabapentin could be contributing to Lower extremity edema (on this for DM neuropathy) Echo pending- further recommendation pending results. COPD exacerbation + PNA: Subjective improvement in SOB symptoms. Receiving IV steroids, ABX, and Nebs per primary service. Encourage smoking cessation. Hypertension: Blood pressures have been hypertensive. On lisinopril 40 mg daily-- continue. Normally on HCTZ at home per the patient-- currently on hold. For now continue Lasix 20 [address] daily in its place. Future considerations of adding Aldactone. Case discussed with Dr. Cali. Further recommendations pending assessment. I spent a total of 40 minutes on the date of service in preparation, delivery, and documentation of the care provided to the patient excluding any time spent in the performance of separately billed services. GUY Ghosh Department of Cardiology, [facility] This chart was completed in part utilizing Speech Voice Recognition Software. Grammatical errors, random word insertions, pronoun errors, and incomplete sentences are an occasional consequence of this system due to software limitations, ambient noise, and hardware issues. Any formal questions or concerns about the content, text, or information contained within the body of this dictation should be directly addressed to the provider for clarification. Supervising Physician Co-Signing Physician Notes Patient was seen and examined, chart, medications, telemetry reviewed. Full assessment and plan as well outlined above. Care and plan discussed and endorsed personally 73-year-old female with newly observed atrial fibrillation in the setting of worsening respiratory distress possible COPD exacerbation, longstanding hypertension/hypertensive heart disease Heart rate controlled. Patient with elevated [id number] 2 score and warrants anticoagulation Suspect patient would benefit from increased diuretic usage as well as treatment of underlying pulmonary issues Risk factors warrant lipid reduction on discharge I spent a total of 40 minutes on the date of service in preparation, delivery, and documentation of the care provided to the patient excluding any time spent in the performance of separately billed services. History of Present Illness Reason for Consultation: New onset PAF Requesting Physician: Sebastian whittington Attending Physician: Wander Gamez MD History of Present Illness 73-year-old female who presents to [facility] due to progressive shortness of breath. Initially was evaluated by her PCP yesterday due to shortness of breath x 1 to 2 weeks with activity. Patient has known COPD and was checking her oxygen at home noting sats dropping into the 80s. Using her inhaler and nebulizer without relief. In the ED patient was found to have a COPD exacerbation with superimposed right sided PNA. Started on neb treatments and IV solu-Medrol + Abx. On admission patient was found to be in atrial fibrillation rates in the 90s, cardiology consulted. This is a new diagnosis for the patient. Echo pending 09/30/2023: Telemetry: AFIB 80-low 100s I/O: -2.1 L Weight: 108 kg >> 107.7 kg Upon entrance into the room patient resting on the edge of the bed. Has ongoing shortness of breath, but improved compared to admission. Notable orthopnea and lower extremity-- states that sometimes her legs get so swollen at home they weep. Only on HCTZ for this. Completely asymptomatic with AFIB. No chest pain or palpitations, dizziness, syncope or near syncope. No fever, chills, cough, hematochezia, melena, or hemoptysis. No history of bleeding/GIB. No recent falls. Former smoker- quit 05/2024. No alcohol or drug use. Denies prior cardiac history-- no history of DC or CVA. No history of rheumatic fever. Past medical history: Hypertension COPD Former smoker, quit in May 2024 Type 2 diabetes Allergies Allergy/AdvReac Type Severity Reaction Status Date / Time bee venom protein (honey bee) Allergy Severe Hives Verified 09/29/23 16:27 diphenhydramine Allergy Hives Verified 09/29/23 16:29 [From Benadryl] [place] Allergy itchy rash Uncoded 09/29/23 16:29 Home Medications Medication Instructions Recorded Confirmed Type albuterol sulfate 90 mcg/actuation 2 puff inhalation Q4 PRN Shortness 09/29/23 09/29/23 History aerosol inhaler Of Breath Or Wheezing fluticasone propionate 45 2 puff inhalation BID 09/29/23 09/29/23 History mcg-salmeterol 21 mcg/actuation HFA inhaler (Advair HFA) gabapentin 100 mg capsule 100 mg PO TID 09/29/23 09/29/23 History glipizide 5 mg tablet 10 mg PO QAM 09/29/23 09/29/23 History insulin glargine 100 unit/mL (3 22 unit subcut .HS PRN 09/29/23 09/29/23 History mL) subcutaneous pen (Lantus Solostar U-100 Insulin) lisinopril 40 mg tablet 40 mg PO DAILY 09/29/23 09/29/23 History naproxen sodium 220 mg tablet 440 mg PO HS 09/29/23 09/29/23 History (Aleve) Patient History Social History Smoking Status: Former smoker Tobacco Type: Cigarettes Cigarettes Per Day: 1-2 packs/day 0050-2984. [id number] 1/2 pack/day - pt states quit 4 mo. ago; Second Hand Exposure: No; Do You Dip or Chew Tobacco: No; Hx Alcohol Use: No Hx Substance Use: No Preferred Language: Vietnamese Management Analyst Required: No Beliefs That Will Affect Care: None Current Living Situation: Alone Other Information That Helps Us Care for You: No Feels Safe at Home: Yes Assistive Devices: Cane, Denture - Upper and Glasses Review of Systems Review of Systems: All systems reviewed & are unremarkable except as noted in HPI & below Physical Exam Constitutional: well developed, + ill appearing and + obese; no acute distress Respiratory: + cough and + tachypneic Auscultation : + rales and + wheezes; no rhonchi Cardiovascular: Rate/Rhythm: regular rate and + irregularly irregular Heart Sounds: normal S1, normal S2 and + murmur (+soft systolic murmur) Extremities: + edema (+1 BLLE Pitting edema with venous stasis changes ) Gastrointestinal (Abdomen): Percussion/Palpation: abdomen soft; abdomen nontender Neurologic: PERRL, EOMI, accommodation nl, no face palsy, no dysarthria Psychiatric: A+Ox3, euthymic affect Results & Data Vital Signs (Past 12 Hours) Vital Signs Temp Pulse Pulse Pulse Resp BP BP 09/30/23 07:31 36.4 C L 79 16 144/90 H 09/30/23 05:10 85 20 09/30/23 04:06 36.4 C L 99 H 22 152/81 H 09/30/23 01:33 90 18 09/30/23 01:25 36.4 C L 95 H 24 169/138 H 09/29/23 22:44 89 09/29/23 22:44 89 09/29/23 21:50 09/29/23 21:50 110 H 26 H 172/95 H 09/29/23 21:45 36.4 C L 110 H 26 H 172/95 H 09/29/23 21:00 94 H 27 H 09/29/23 21:00 94 H 27 H 151/113 H 09/29/23 20:00 98 H 33 H 09/29/23 20:00 186/110 H BP Pulse Ox O2 Del Method 09/30/23 07:31 91 Room Air 09/30/23 05:10 155/73 H 93 Room Air 09/30/23 04:06 93 Room Air 09/30/23 01:33 93 Room Air 09/30/23 01:25 93 Room Air 09/29/23 22:44 09/29/23 22:44 09/29/23 21:50 Room Air 09/29/23 21:50 90 Room Air 09/29/23 21:45 90 Room Air 09/29/23 21:00 92 09/29/23 21:00 92 Room Air 09/29/23 20:00 92 09/29/23 20:00 Laboratory Results Cardiac Enzymes 09/29/23 Range/Units 13:25 AST 18 (13-39) U/L Troponin I High Sens 12.9 (0-14) pg/ml B-Natriuretic Peptide 151 H (0-100) pg/ml Coagulation 09/29/23 Range/Units 13:25 PT 12.0 (9.0-12.0) Seconds B-Natriuretic Peptide 151 H (0-100) pg/ml CBC 09/29/23 09/30/23 Range/Units 13:25 05:44 WBC 6.34 5.70 (4.8-10.8) K/ul RBC 4.74 4.86 (4.20-5.40) M/uL Hgb 11.4 L 11.6 L (12.0-16.0) g/dl Hct 38.2 38.9 (37.0-47.0) % Plt Count 157 153 (130-400) K/uL Neut # (Auto) 4.56 4.95 (1.40-6.50) K/uL Lymph # (Auto) 1.16 L 0.61 L (1.20-3.40) K/uL Levy # (Auto) 0.37 0.03 L (0.11-0.59) K/uL Eos # (Auto) 0.15 0.01 (0.00-0.50) K/uL Baso # (Auto) 0.06 0.03 (0.00-0.20) K/uL Comprehensive Metabolic Panel 09/29/23 09/30/23 Range/Units 13:25 05:44 Sodium 139 135 L (136-145) mmol/L Potassium 3.9 4.2 (3.5-5.1) mmol/L Chloride 108 H 105 (98-107) mmol/L Carbon Dioxide 23 20 L (21-32) mmol/L BUN 15 17 (6-23) mg/dl Creatinine 0.91 0.88 (0.6-1.2) mg/dl Glucose 108 H 246 H (70-99(Fasting)) mg/dl Calcium 9.3 9.4 (8.6-10.3) mg/dl AST 18 (13-39) U/L ALT 15 (7-52) U/L Alkaline Phosphatase 91 (34-104) U/L Total Protein 6.8 (6.0-8.3) gm/dl Albumin 4.1 (3.4-5.0) gm/dl Intake and Output 09/29/23 09/30/23 09/30/23 22:59 06:59 14:59 Intake Total 50 / 150 100 / 150 Output Total 2224 Balance -2124 Intake: IV 50 / 150 100 / 150 Doxycycline Hyclate 100 mg In 100 / 100 Dextrose 5% Mini-B 100 ml @ 50 mls/hr IV Q12H [facility] Rx#:[id number] cefTRIAXone SODIUM 2,000 mg In 50 / 50 Dextrose 5 % Mini-B 50 ml @ 100 mls/hr IV Q24H [facility] Rx#: [id number] Output: Urine 2225 / 2225 Other: Weight 107.7 kg Weight Measurement Method Standing Scale
[2023-09-30 08:46] LABS: Estimated Average Glucose 154 mg/dl
[2023-09-30 08:50] LABS: Thyroid Stimulating Hormone 0.705 uIu/ml (0.300-4.500)
[2023-09-30] MEDS: glipiZIDE 5 MG TAB PO SCH (09:32)
[2023-09-30] MEDS: lisinopril 40 MG TAB PO SCH (09:32)
--- NOTE | 2023-09-30 10:36 | Electrocardiogram Report ---
Test Reason : Blood Pressure : / mmHG Vent. Rate : 091 BPM Atrial Rate : 000 BPM P-R Int : 000 ms QRS Dur : 070 ms QT Int : 366 ms P-R-T Axes : 000 150 049 degrees QTc Int : 450 ms Suspect arm lead reversal, interpretation assumes no reversal Atrial fibrillation Low voltage QRS Anterolateral infarct , age undetermined Abnormal ECG No previous ECGs available Confirmed by Renato Bhardwaj ([id number]) on 09/30/2023 10:36:04 AM Referred By: Confirmed By:Rayshawn Bhardwaj
--- NOTE | 2023-09-30 10:49 | Electrocardiogram Report ---
Test Reason : Blood Pressure : / mmHG Vent. Rate : 084 BPM Atrial Rate : 096 BPM P-R Int : 000 ms QRS Dur : 078 ms QT Int : 396 ms P-R-T Axes : 000 164 060 degrees QTc Int : 467 ms Atrial fibrillation Low voltage QRS Possible Anterolateral infarct (cited on or before 29-SEP-2023) Abnormal ECG When compared with ECG of 30-SEP-2023 01:16, (unconfirmed) Nonspecific T wave abnormality no longer evident in Lateral leads Confirmed by Renato Bhardwaj ([id number]) on 09/30/2023 10:49:01 AM Referred By: REFERRED SELF Confirmed By:Rayshawn Bhardwaj
--- NOTE | 2023-09-30 10:52 | Electrocardiogram Report ---
Test Reason : Blood Pressure : / mmHG Vent. Rate : 092 BPM Atrial Rate : 115 BPM P-R Int : 000 ms QRS Dur : 062 ms QT Int : 366 ms P-R-T Axes : 000 145 056 degrees QTc Int : 452 ms Poor data quality, interpretation may be adversely affected Suspect arm lead reversal, interpretation assumes no reversal Atrial fibrillation Low voltage QRS Anterolateral infarct (cited on or before 29-SEP-2023) Abnormal ECG When compared with ECG of 29-SEP-2023 13:21, (unconfirmed) No significant change was found Confirmed by Renato Bhardwaj ([id number]) on 09/30/2023 10:52:10 AM Referred By: REFERRED SELF Confirmed By:Rayshawn Bhardwaj
[2023-09-30] MEDS: APIXABAN 5 MG TABLET PO SCH (12:48)
--- NOTE | 2023-09-30 13:04 | Hospitalist Progress Note ---
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 She denied any fever or increased cough but reported whitish-yellow phlegm with cough at presentation. She is being managed for the following: Acute exacerbation of COPD Possible pneumonia History of COPD on bronchodilators at home, came in with progressive shortness of breath for 2 weeks associated with productive cough and wheezing. Admitting CXR with right basilar opacity ---> follow-up CXR in about 6 weeks to document resolution. Exacerbation likely secondary to right basilar pneumonia. Admitting respiratory viral panel negative. Continue with as needed and scheduled nebulizers, continue home inhalers and medications. Continue with Solu-Medrol 09/28, will taper down to once a day from raji. Continue with Rocephin 09/28 and doxycycline 09/28. Patient reports improvement in her shortness of breath, wheezing has improved, follow clinically. Patient still feels tired and breath sounds decreased bilaterally on exam. Patient will benefit from pulmonary function test in about 6 weeks time upon discharge. Likely persistent A-fib: Newly diagnosed A-fib, asymptomatic, unknown duration. [id number] score of 4. Cardiology on board, Eliquis is started. No beta- mulugeta for now. Echo with EF of 60 to 65%, moderate concentric LVH, LV wall motion is normal. TSH wnl. Other chronic medical conditions: Continue with/resume home meds as and when able Hypertension -on lisinopril (per [facility] chart review 09/29) and HCTZ at home per patient. T2DM: A1c of 7.0 this admission, continue with sliding scale insulin while in hospital. GERD: Continue with PPI. Avoid NSAIDs. DVT prophylaxis: Subcutaneous heparin CODE STATUS: Full code Admission and Anticipated Discharge Date Admission Date: September 29, 2023 Subjective Patient was seen and examined at bedside. Patient was sitting up in chair, on room air, NAD, resting comfortably. Patient reports improvement in her shortness of breath and wheezing, still reports some subjective SOB. Patient reports feeling better. Patient denied fever or increased cough. Patient reports eating okay and moving bowels okay. Physical Exam Physical Exam: GENERAL: Alert and oriented x3. NAD, on RA. appears tired,weak. Obese class III. HEENT: No pallor, no icterus. Pupils equal, round and reactive to light. Oral mucosa moist. NECK: No JVD, no neck masses. HEART: S1 and S2 heard. irregular rate and rhythm. No murmur, no gallop. RESPIRATORY SYSTEM: Normal AP diameter. No accessory muscle use. No wheezing, no crackles. slightly diminished lung sounds b/l. ABDOMEN: Soft, bowel sounds present, nontender, no distention. CENTRAL NERVOUS SYSTEM: No facial droop. Speech is clear. Obeys simple commands. Moves extremities. EXTREMITIES: No edema, no erythema seen. Results & Data Results & Data Vital Signs (Past 12 Hours) Vital Signs Temp Pulse Pulse Pulse Resp BP BP 09/30/23 11:47 36.5 C 83 16 152/89 H 09/30/23 08:29 71 09/30/23 07:31 36.4 C L 79 16 144/90 H 09/30/23 05:10 85 20 155/73 H 09/30/23 04:06 36.4 C L 99 H 22 152/81 H 09/30/23 01:33 90 18 09/30/23 01:25 36.4 C L 95 H 24 169/138 H Pulse Ox O2 Del Method 09/30/23 11:47 93 Room Air 09/30/23 08:29 09/30/23 07:31 91 Room Air 09/30/23 05:10 93 Room Air 09/30/23 04:06 93 Room Air 09/30/23 01:33 93 Room Air 09/30/23 01:25 93 Room Air
[2023-10-01 06:33] LABS: Hematocrit (blood only) 36.4 % (37.0-47.0); Mean Corpuscular Hemoglobin 24.2 pg (25.0-34.0); Mean Corpuscular Hgb Conc 30.2 g/dL (32.0-36.0); Mean Corpuscular Volume 80.2 fL (80.0-100.0); Platelet Count 156 K/uL (130-400); RDW Coefficient of Variation 17.4 % (11.5-14.5); RDW Standard Deviation 50.5 fL (36.4-46.3); Red Blood Count 4.54 M/uL (4.20-5.40); White Blood Count 8.48 K/ul (4.8-10.8)
[2023-10-01 06:55] LABS: BUN Creatinine Ratio 25.4 (10-20); Calcium 9.5 mg/dl (8.6-10.3); Creatinine Clr Calc Pharmacy 49.1 ml/min; Est GFR (African American) 55.2 ml/min; Est GFR (Non-African American) 47.7 ml/min; Potassium 4.3 mmol/L (3.5-5.1)
--- NOTE | 2023-10-01 07:15 | Cardiology Progress Note ---
Date of Service October 01, 2023 Assessment & Plan (1) Acute exacerbation of chronic obstructive pulmonary disease: (2) New onset atrial fibrillation: (3) Hypertension: (4) Right heart failure: Plan IMPRESSION: 73-year-old female admitted for COPD exacerbation found to be in atrial fibrillation of unknown duration with controlled ventricular response. Echo revealing preserved LV systolic function with moderate concentric LVH and no wall motion abnormalities PLAN: Persistent AFIB: Newly dx AFIB with controlled ventricular response, asymptomatic-- I suspect the patient has been in AFIB for quite some time. CHADSVASC score of 4 (Age, female, HTN, DM)--No prior history of bleeding. Continue Eliquis 5 mg BID for stroke prevention with AFIB. Will avoid beta mulugeta at this time as rates are currently controlled and patient has active wheeze. I suspect as COPD exacerbation is treated rates will come down further Volume status improving with IV Lasix, will continue 20 mg daily. Gabapentin could be contributing to Lower extremity edema (on this for DM neuropathy) COPD exacerbation + PNA: Subjective improvement in SOB symptoms. Receiving IV steroids, ABX, and Nebs per primary service. Encourage smoking cessation. Hypertension: Blood pressures have been hypertensive, but improved over the last 24 hours On lisinopril 40 mg daily-- continue. Normally on HCTZ at home per the patient-- will discontinue. Receiving IV Lasix inpatient -- consider transitioning at discharge, possibly 20 mg MWF. Future considerations of adding Aldactone. Case discussed with Dr. Cali. Will follow. I spent a total of 40 minutes on the date of service in preparation, delivery, and documentation of the care provided to the patient excluding any time spent in the performance of separately billed services. GUY Ghosh Department of Cardiology, [facility] This chart was completed in part utilizing Speech Voice Recognition Software. Grammatical errors, random word insertions, pronoun errors, and incomplete sentences are an occasional consequence of this system due to software limitations, ambient noise, and hardware issues. Any formal questions or concerns about the content, text, or information contained within the body of this dictation should be directly addressed to the provider for clarification. Admission and Anticipated Discharge Date Admission Date: September 29, 2023 Supervising Physician Co-Signing Physician Notes Patient was seen and personally examined, care and management discussed in detail with advanced provider. Plan as listed above personally endorse 73-year-old female presents with signs and symptoms of COPD exacerbation with chronic right heart failure phenomena including abdominal bloating and lower extremity edema. Patient responding to treatments for pulmonary issues as well as diuresis. Would continue to treat with IV furosemide to aid in abdominal distention and lower extremity edema Preserved LV systolic function present on echocardiogram Will warrant diuretic dosing on discharge/possible spironolactone I spent a total of 20 minutes on the date of service in preparation, delivery, and documentation of the care provided to the patient excluding any time spent in the performance of separately billed services. Subjective 73-year-old female admitted for COPD exacerbation found to be in atrial fibrillation of unknown duration with controlled ventricular response. Asymptomatic. 09/30/2023: Ventricular rates controlled--not currently requiring beta-mulugeta therapy Eliquis 5 mg twice daily started for stroke prevention Mildly hypervolemic on presentation, treated with IV Lasix 20 mg x2. Echocardiogram:LVEF 60 to 65% without wall motion abnormalities. Moderate concentric LVH. Left atrium moderately dilated. Mild aortic sclerosis, no stenosis. Trace TR. RV systolic pressure elevated at 30 to 40 mmHg 10/01/2023: Telemetry: AFIB 70-80s I/O: -4.2 L Weight: 108 kg >> 98.4 kg Labs: Renal function and electrolytes stable. Potassium 4.3, mag 2.0. Upon entrance into the room patient resting in bed. HOB elevated-- notes worsening cough and wheezing since getting her neb treatment and advair this am. +orthopnea, feels better sitting on edge of bed rather than laying. Lower extremity edema improved. Notes increased urination yesterday after IV Lasix. No chest pain, palpitations, dizziness, syncope or near syncope. No fever, chills, cough, hematochezia, melena, or hemoptysis. Review of Systems Review of Systems: All systems reviewed & are unremarkable except as noted in HPI & below Physical Exam Constitutional: well developed, + ill appearing and + obese; no acute distress Respiratory: + cough and + tachypneic Auscultation : + rales and + wheezes; no rhonchi Cardiovascular: Rate/Rhythm: regular rate and + irregularly irregular Heart Sounds: normal S1, normal S2 and + murmur (+soft systolic murmur) Extremities: + edema (+1 BLLE Pitting edema with venous stasis changes ) Gastrointestinal (Abdomen): Percussion/Palpation: abdomen soft; abdomen nontender Neurologic: PERRL, EOMI, accommodation nl, no face palsy, no dysarthria Psychiatric: A+Ox3, euthymic affect Results & Data Vital Signs (Past 12 Hours) Vital Signs Temp Pulse Pulse Resp BP BP Pulse Ox 10/01/23 07:00 85 10/01/23 03:35 36.5 C 90 20 115/80 90 09/30/23 23:38 36.4 C L 80 16 124/72 90 09/30/23 22:02 77 09/30/23 19:46 36.6 C 82 18 123/71 91 09/30/23 19:31 O2 Del Method 10/01/23 07:00 10/01/23 03:35 Room Air 09/30/23 23:38 Room Air 09/30/23 22:02 09/30/23 19:46 Room Air 09/30/23 19:31 Room Air Laboratory Results CBC 10/01/23 Range/Units 06:05 WBC 8.48 (4.8-10.8) K/ul RBC 4.54 (4.20-5.40) M/uL Hgb 11.0 L (12.0-16.0) g/dl Hct 36.4 L (37.0-47.0) % Plt Count 156 (130-400) K/uL Comprehensive Metabolic Panel 10/01/23 Range/Units 06:05 Sodium 136 (136-145) mmol/L Potassium 4.3 (3.5-5.1) mmol/L Chloride 105 (98-107) mmol/L Carbon Dioxide 22 (21-32) mmol/L BUN 29 H (6-23) mg/dl Creatinine 1.14 (0.6-1.2) mg/dl Glucose 245 H (70-99(Fasting)) mg/dl Calcium 9.5 (8.6-10.3) mg/dl Intake and Output 09/30/23 10/01/23 10/01/23 22:59 06:59 14:59 Intake Total 150 / 1180 490 / 1180 Output Total 2226 / 3351 Balance 150 / -2171 -1736 / -2171 Intake: IV 150 / 250 Doxycycline Hyclate 100 mg In 100 / 200 Dextrose 5% Mini-B 100 ml @ 50 mls/hr IV Q12H [facility] Rx#:[id number] cefTRIAXone SODIUM 2,000 mg In 50 / 50 Dextrose 5 % Mini-B 50 ml @ 100 mls/hr IV Q24H [facility] Rx#: [id number] Oral 490 / 930 Output: Urine 2225 / 3350 # Bowel Movements Other: Weight 98.43 kg Weight Measurement Method Built in [facility]
[2023-10-01] MEDS: ALBUTEROL HFA 8 GM INHALER INH PRN (09:01)
[2023-10-01] MEDS: FUROSEMIDE INJ 20 MG/2 ML VIAL IV SCH (10:08)
--- NOTE | 2023-10-01 16:43 | Hospitalist Progress Note ---
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 She denied any fever or increased cough but reported whitish-yellow phlegm with cough at presentation. She is being managed for the following: Acute exacerbation of COPD Possible pneumonia History of COPD on bronchodilators at home, came in with progressive shortness of breath for 2 weeks associated with productive cough and wheezing. Admitting CXR with right basilar opacity ---> follow-up CXR in about 6 weeks to document resolution. Exacerbation likely secondary to right basilar pneumonia. Admitting respiratory viral panel negative. Continue with as needed and scheduled nebulizers, continue home inhalers and medications. Continue with Solu-Medrol 09/28, continue twice daily today, will taper down to once a day from raji if wheezing improved. Continue with Rocephin 09/28 and doxycycline 09/28. Patient reports improvement in her shortness of breath, wheezing has improved, follow clinically. Patient still feels tired and wheezing bilaterally on exam. Patient will benefit from pulmonary function test in about 6 weeks time upon discharge. Likely persistent A-fib: Newly diagnosed A-fib, asymptomatic, unknown duration. [id number] score of 4. Cardiology on board, Eliquis is started [cost $11.2 a month]. No beta-mulugeta for now. Echo with EF of 60 to 65%, moderate concentric LVH, LV wall motion is normal. TSH wnl. Other chronic medical conditions: Continue with/resume home meds as and when able Hypertension -on lisinopril (per epic chart review 09/29) and HCTZ at home per patient (1 tab daily, unaware of strenght, didn't notice in OP chart review]. Per cardio, lasix on DC. T2DM: A1c of 7.0 this admission, continue with sliding scale insulin while in hospital. GERD: Continue with PPI. Avoid NSAIDs. DVT prophylaxis: Eliquis CODE STATUS: Full code Admission and Anticipated Discharge Date Admission Date: September 29, 2023 Subjective Patient was seen and examined at bedside. Patient was lying in bed, on room air, NAD, resting comfortably. Patient reports improvement in her shortness of breath but has increased wheezing today. Patient reports feeling tired. Patient denied fever or increased cough. Patient reports eating okay and moving bowels okay. Physical Exam Physical Exam: GENERAL: Alert and oriented x3. NAD, on RA. appears tired,weak. Obese class III. HEENT: No pallor, no icterus. Pupils equal, round and reactive to light. Oral mucosa moist. NECK: No JVD, no neck masses. HEART: S1 and S2 heard. irregular rate and rhythm. No murmur, no gallop. RESPIRATORY SYSTEM: Normal AP diameter. No accessory muscle use. + wheezing, no crackles. slightly diminished lung sounds b/l. ABDOMEN: Soft, bowel sounds present, nontender, no distention. CENTRAL NERVOUS SYSTEM: No facial droop. Speech is clear. Obeys simple commands. Moves extremities. EXTREMITIES: No edema, no erythema seen. Results & Data Results & Data Vital Signs (Past 12 Hours) Vital Signs Temp Pulse Pulse Pulse Resp BP BP 10/01/23 15:53 36.4 C L 76 17 117/71 10/01/23 15:00 61 10/01/23 13:01 10/01/23 11:40 36.3 C L 77 20 130/80 10/01/23 09:02 72 16 10/01/23 08:00 10/01/23 07:37 36.4 C L 77 18 130/80 10/01/23 07:00 85 Pulse Ox Pulse Ox Pulse Ox O2 Del Method O2 Flow Rate O2 Flow Rate 10/01/23 15:53 92 Room Air 10/01/23 15:00 10/01/23 13:01 92 89 L 0 0 10/01/23 11:40 95 Room Air 10/01/23 09:02 95 Room Air 10/01/23 08:00 Room Air 10/01/23 07:37 93 Room Air 10/01/23 07:00
[2023-10-02 06:30] LABS: Hematocrit (blood only) 36.4 % (37.0-47.0); Hemoglobin 11.3 g/dl (12.0-16.0); Mean Corpuscular Hemoglobin 24.3 pg (25.0-34.0); Mean Corpuscular Volume 78.3 fL (80.0-100.0); Mean Platelet Volume 9.2 fL (9.4-12.4); Platelet Count 166 K/uL (130-400); RDW Coefficient of Variation 17.3 % (11.5-14.5); RDW Standard Deviation 49.1 fL (36.4-46.3); Red Blood Count 4.65 M/uL (4.20-5.40); White Blood Count 9.39 K/ul (4.8-10.8)
[2023-10-02 06:55] LABS: BUN Creatinine Ratio 28.6 (10-20); Calcium 9.9 mg/dl (8.6-10.3); Creatinine Clr Calc Pharmacy 46.5 ml/min; Est GFR (African American) 52.4 ml/min; Est GFR (Non-African American) 45.3 ml/min; Magnesium 2.1 mg/dl (1.7-2.4); Phosphorus 3.6 mg/dl (2.5-4.9); Potassium 4.2 mmol/L (3.5-5.1)
--- NOTE | 2023-10-02 11:13 | Cardiology Progress Note ---
Date of Service October 02, 2023 Assessment & Plan (1) Acute exacerbation of chronic obstructive pulmonary disease: (2) New onset atrial fibrillation: (3) Hypertension: (4) Right heart failure: Plan IMPRESSION: 73-year-old female admitted for COPD exacerbation found to be in atrial fibrillation of unknown duration with controlled ventricular response. Echo revealing preserved LV systolic function with moderate concentric LVH and no wall motion abnormalities PLAN: Persistent AFIB: Newly dx AFIB with controlled ventricular response, asymptomatic-- I suspect the patient has been in AFIB for quite some time. CHADSVASC score of 4 (Age, female, HTN, DM)--No prior history of bleeding. Continue Eliquis 5 mg BID for stroke prevention with AFIB. Will avoid beta mulugeta at this time as rates are currently controlled and patient has active wheeze. I suspect as COPD exacerbation is treated rates will come down further Volume status improving with IV Lasix, will continue 20 mg daily. Gabapentin could be contributing to Lower extremity edema (on this for DM neuropathy) COPD exacerbation + PNA: Subjective improvement in SOB symptoms. Receiving IV steroids, ABX, and Nebs per primary service. Encourage smoking cessation. Hypertension: Blood pressures have been hypertensive, but improved over the last 24 hours On lisinopril 40 mg daily-- continue. Normally on HCTZ at home per the patient-- will discontinue. Receiving IV Lasix inpatient -- consider transitioning at discharge, possibly 20 mg MWF. Future considerations of adding Aldactone. 10/02/23: Patient remains in persistent afib. Rates controlled off AV annamarie blocking agents. Continue Eliquis 5 mg BID for stroke prophylaxis. Continue furosemide 20 mg IV today. She has had significant diuresis with this low dose over the last 48 hours. -6 L since admission Weight down possible 8-10 kg. Hold IV lasix morning of 10/02 and re-evaluate volume status. Consider initiating oral diuretics at that time for discharge. 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 Consider low dose furosemide with spironolactone HTN improving over the last 48 hours as well with diuresis. Continue lisinopril 40 mg. Add spironolactone 12.5 mg daily to aid with HTN and volume status. Case discussed with Dr. Cali I spent a total of 30 minutes on the date of service in preparation, delivery, and documentation of the care provided to the patient excluding any time spent in the performance of separately billed services. Aditi Love PA-C Department of Cardiology, [facility] This chart was completed in part utilizing Speech Voice Recognition Software. Grammatical errors, random word insertions, pronoun errors, and incomplete sentences are an occasional consequence of this system due to software limitations, ambient noise, and hardware issues. Any formal questions or concerns about the content, text, or information contained within the body of this dictation should be directly addressed to the provider for clarification. Admission and Anticipated Discharge Date Admission Date: September 29, 2023 Supervising Physician Co-Signing Physician Notes Patient was seen and personally examined, care and management discussed in detail with advanced provider. Plan as listed above personally endorse 73-year-old female presents with signs and symptoms of COPD exacerbation with chronic right heart failure phenomena including abdominal bloating and lower extremity edema. Patient responding to treatments for pulmonary issues as well as diuresis. Blood pressure increasing slightly Plan: Newly diagnosed atrial fibrillation being controlled by intrinsic conduction disease. Anticoagulation to be initiated with Eliquis. Acute on likely chronic right heart failure secondary to chronic obstructive lung disease. Responding to IV diuretics. Will discontinue after dose today transition to oral furosemide 40 mg p.o. daily plus spironolactone 12.5 mg p.o. daily in a.m. Contact with any additional questions I spent a total of 20 minutes on the date of service in preparation, delivery, and documentation of the care provided to the patient excluding any time spent in the performance of separately billed services. Subjective Patient resting at side of bed. Reports significant urination over the last 24 hours. Interval improvement in her shortness of breath and lower extremity edema. No recent chest pain. No dizziness or lightheadedness. Tolerating medications. Review of Systems Review of Systems: All systems reviewed & are unremarkable except as noted in HPI & below Physical Exam Constitutional: + obese; no acute distress Respiratory: Auscultation: + diminished lung sounds and + wheezes; no rhonchi Cardiovascular: Rate/Rhythm: + irregularly irregular Heart Sounds: normal S1, normal S2 and + murmur (+soft systolic murmur) Extremities: + edema (+1 BLLE Pitting edema with venous stasis changes ) Gastrointestinal (Abdomen): Percussion/Palpation: abdomen soft; abdomen nontender Neurologic: PERRL, EOMI, accommodation nl, no face palsy, no dysarthria Psychiatric: A+Ox3, euthymic affect Results & Data Vital Signs (Past 12 Hours) Vital Signs Temp Pulse Pulse Resp BP Pulse Ox O2 Del Method 10/02/23 07:59 36.3 C L 75 16 147/89 H 95 Room Air 10/02/23 07:24 79 10/02/23 04:22 36.4 C L 80 20 138/70 93 Room Air 10/01/23 23:56 36.3 C L 76 18 142/90 H 94 Room Air Laboratory Results CBC 10/02/23 Range/Units 05:42 WBC 9.39 (4.8-10.8) K/ul RBC 4.65 (4.20-5.40) M/uL Hgb 11.3 L (12.0-16.0) g/dl Hct 36.4 L (37.0-47.0) % Plt Count 166 (130-400) K/uL Comprehensive Metabolic Panel 10/02/23 Range/Units 05:42 Sodium 136 (136-145) mmol/L Potassium 4.2 (3.5-5.1) mmol/L Chloride 103 (98-107) mmol/L Carbon Dioxide 23 (21-32) mmol/L BUN 34 H (6-23) mg/dl Creatinine 1.19 (0.6-1.2) mg/dl Glucose 167 H (70-99(Fasting)) mg/dl Calcium 9.9 (8.6-10.3) mg/dl Intake and Output 10/01/23 10/02/23 10/02/23 22:59 06:59 14:59 Intake Total 150 / 1760 790 / 1760 Output Total 450 / 3625 725 / 3625 Balance -300 / -1865 65 / -1865 Intake: IV 50 / 250 100 / 250 Doxycycline Hyclate 100 mg In 100 / 200 Dextrose 5% Mini-B 100 ml @ 50 mls/hr IV Q12H [facility] Rx#:[id number] cefTRIAXone SODIUM 2,000 mg In 50 / 50 Dextrose 5 % Mini-B 50 ml @ 100 mls/hr IV Q24H [facility] Rx#: [id number] Oral 100 / 870 50 / 870 Tube Feeding 640 / 640 Output: Urine 450 / 3425 525 / 3425 Other 200 / 200 Other: Weight 96.3 kg Weight Measurement Method Built in [facility] Diagnostic Findings Telemetry reviewed: Afib with controlled rates in the 70's; occ PVC Medications Administered Current Inpatient Medications Albuterol (Albuterol Hfa 8 Gm Inhaler) 2 puffs INH Q4 PRN PRN Reason: Shortness Of Breath Or Wheezing Stop: 10/29/23 22:46 Last Admin: 10/01/23 09:01 Dose: 2 puffs Albuterol (Albut/Ipratrop 3mg/0.5mg Neb 3 Ml Vial) 3 ml NEB Q6R PRN; Protocol PRN Reason: Shortness Of Breath Or Wheezing Stop: 10/29/23 22:46 Last Admin: 09/30/23 01:32 Dose: 3 ml Apixaban (Apixaban 5 Mg Tablet) 5 mg PO BID [facility] Stop: 10/30/23 09:29 Last Admin: 10/02/23 08:39 Dose: 5 mg Dextrose (Dextrose 50% 50 Ml Syringe) 25 - 50 ml IV UD PRN; Protocol PRN Reason: Hypoglycemia Protocol Stop: 10/29/23 19:10 Fluticasone/Vilanterol (Fluticasone/Vilanterol 100/25mcg 14 Puffs/Inhaler) 1 puffs INH HS [facility] Stop: 10/29/23 22:59 Last Admin: 10/01/23 21:12 Dose: 1 puffs Furosemide (Furosemide Inj 20 Mg/2 Ml Vial) 20 mg IV DAILY [facility] Stop: 10/31/23 09:44 Last Admin: 10/02/23 08:39 Dose: 20 mg Gabapentin (Gabapentin 100 Mg Cap) 100 mg PO TID [facility] Stop: 10/29/23 22:46 Last Admin: 10/02/23 08:39 Dose: 100 mg Glipizide (Glipizide 5 Mg Tab) 10 mg PO DAILY@0730 [facility] Stop: 10/30/23 07:29 Last Admin: 10/02/23 08:38 Dose: 10 mg Glucagon (Glucagon For Inj 1 Mg Vial) 1 mg SQ UD PRN; Protocol PRN Reason: Hypoglycemia Protocol Stop: 10/29/23 19:10 Glucose (Glucose 10 Tab/Tube) 4 - 8 tab PO UD PRN; Protocol PRN Reason: Hypoglycemia Treatment Stop: 10/29/23 19:10 Glucose (Glucose 40% Gel 15 Gm Tube) 15 - 30 gm PO UD PRN; Protocol PRN Reason: Hypoglycemia Protocol Stop: 10/29/23 19:10 Guaifenesin/Dextromethorphan (Guaifenesin/Dextrom Syrup 200mg/20mg 10ml Udc) 10 ml PO Q6H PRN PRN Reason: Cough Stop: 10/29/23 19:06 Ceftriaxone Sodium 2,000 mg/ (Dextrose) 50 mls @ 100 mls/hr IV Q24H [facility]OS[facility]; Protocol Stop: 10/06/23 19:14 Last Infusion: 10/01/23 19:12 Dose: Infused Doxycycline Hyclate 100 mg/ (Dextrose) 100 mls @ 50 mls/hr IV Q12H [facility] Stop: 10/06/23 20:59 Last Admin: 10/02/23 09:22 Dose: 50 mls/hr Methylprednisolone 60 mg/ (Syringe) 0.96 mls @ 1.5 mls/min IV Q12H [facility] Stop: 10/29/23 23:29 Last Admin: 10/01/23 23:02 Dose: 1.5 mls/min Insulin Aspart (Insulin Aspart Per Unit Charge) 0 units SC ACHS [facility] Stop: 10/29/23 20:59 Last Admin: 10/02/23 09:18 Dose: 6 units Insulin Glargine (Lantus Per Unit Charge) 0 - 22 units SQ HS [facility]OS[facility] Stop: 10/29/23 23:14 Last Admin: 10/01/23 21:04 Dose: 22 units Lisinopril (Lisinopril 40 Mg Tab) 40 mg PO DAILY [facility] Stop: 10/30/23 08:59 Last Admin: 10/02/23 08:38 Dose: 40 mg Miscellaneous (Carbohydrates For Hypoglycemia ) 15 - 30 gm PO UD PRN PRN Reason: Hypoglycemia Protocol Stop: 10/29/23 19:10 Pantoprazole Sodium (Pantoprazole 40 Mg Tab) 40 mg PO DAILY [facility] Stop: 10/29/23 19:29 Last Admin: 10/02/23 08:38 Dose: 40 mg
[2023-10-02] MEDS: SPIRONOLACTONE 12.5 MG TAB PO SCH (12:04)
--- NOTE | 2023-10-02 16:25 | Hospitalist Progress Note ---
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 She denied any fever or increased cough but reported whitish-yellow phlegm with cough at presentation. She is being managed for the following: Acute exacerbation of COPD Possible pneumonia History of COPD on bronchodilators at home, came in with progressive shortness of breath for 2 weeks associated with productive cough and wheezing. Admitting CXR with right basilar opacity ---> follow-up CXR in about 6 weeks to document resolution. Exacerbation likely secondary to right basilar pneumonia. Admitting respiratory viral panel negative. Continue with as needed and scheduled nebulizers, continue home inhalers and medications. Continue with Solu-Medrol 09/28, taper to once daily from today, to oral after raji dose if continues to improve. Continue with Rocephin 09/28 and doxycycline 09/28. Patient reports improvement in her shortness of breath, wheezing has improved, follow clinically. Patient will benefit from pulmonary function test in about 6 weeks time upon discharge. Likely persistent A-fib: Newly diagnosed A-fib, asymptomatic, unknown duration. [id number] score of 4. Cardiology on board, Eliquis is started [cost $11.2 a month, pt agreeable]. No beta-mulugeta for now. Echo with EF of 60 to 65%, moderate concentric LVH, LV wall motion is normal. TSH wnl. Other chronic medical conditions: Continue with/resume home meds as and when able Hypertension -on lisinopril (per epic chart review 09/29) and HCTZ at home per patient (1 tab daily, unaware of strenght, didn't notice in OP chart review]. Per cardio, lasix and aldactone on DC. T2DM: A1c of 7.0 this admission, continue with sliding scale insulin while in hospital. GERD: Continue with PPI. Avoid NSAIDs. DVT prophylaxis: Eliquis CODE STATUS: Full code Admission and Anticipated Discharge Date Admission Date: September 29, 2023 Subjective Patient was seen and examined at bedside. Patient was sitting up in bed, on room air, NAD, resting comfortably. Patient reports improvement in her shortness of breath and wheezing.. Patient reports feeling better. Patient denied fever or increased cough. Patient reports eating okay and moving bowels okay. Physical Exam Physical Exam: GENERAL: Alert and oriented x3. NAD, on RA. appears tired,weak. Obese class III. HEENT: No pallor, no icterus. Pupils equal, round and reactive to light. Oral mucosa moist. NECK: No JVD, no neck masses. HEART: S1 and S2 heard. irregular rate and rhythm. No murmur, no gallop. RESPIRATORY SYSTEM: Normal AP diameter. No accessory muscle use. no wheezing, no crackles. slightly diminished lung sounds b/l. ABDOMEN: Soft, bowel sounds present, nontender, no distention. CENTRAL NERVOUS SYSTEM: No facial droop. Speech is clear. Obeys simple commands. Moves extremities. EXTREMITIES: trace edema, no erythema seen. Results & Data Results & Data Vital Signs (Past 12 Hours) Vital Signs Temp Pulse Pulse Resp BP Pulse Ox O2 Del Method 10/02/23 15:48 36.4 C L 53 L 16 128/78 95 Room Air 10/02/23 14:04 96 10/02/23 12:08 36.3 C L 84 16 163/93 H 96 Room Air 10/02/23 07:59 36.3 C L 75 16 147/89 H 95 Room Air 10/02/23 07:24 79
[2023-10-03] MEDS: methylPREDNISolone 60 MG in SYRINGE 0 ML IV SCH (08:06)
[2023-10-03] MEDS: FUROSEMIDE 40 MG TAB PO SCH (08:07)
--- NOTE | 2023-10-03 13:32 | Discharge Summary ---
Date of Service October 03, 2023 Admission HPI Per Admitting Provider She is a 73-year-old female with significant past medical history of COPD, hypertension, type 2 diabetes and GERD apparently has been complaining of shortness of breath with exertion for the last 2 weeks. The condition has been getting gradually worse and worse and she tried to get an appointment with the PCP but could not get one until today she was seen by her PCP and was sent to emergency room for continuation of care. Noted to have significant desaturation with increasing shortness of breath and wheezing. Denies any fever and or chills but has cough with productive of whitish-yellow phlegm. Oxygen satura tion was noted to be around 80s at doctor's office. No chest pain or palpitation. No abdominal pain nausea and or vomiting. She was admitted with exacerbation of COPD with possible pneumonia in the right base. Admission Exam Per Admitting Provider Physical Exam: Lying in bed with some distress due to shortness of breath Constitutional: well developed, well nourished, + ill appearing and + obese Eyes: PERRL, conjunctivae normal, anicteric sclerae ENMT: external ear and nose normal, oropharynx normal Neck: trachea midline, no thyromegaly Respiratory: + respiratory distress (Minimal distress at rest) Auscultation: + diminished lung sounds, + crackles (Bibasilar crackles more on the right side) and + wheezes (Mild to moderate wheezing bilaterally) Cardiovascular: Rate/Rhythm: regular rate and regular rhythm; not tachycardic Heart Sounds: normal S1 and normal S2; no murmur Extremities: + edema (1+ edema bilaterally with chronic skin changes) Gastrointestinal (Abdomen): Inspection/Auscultation: + abdomen distended and normal bowel sounds Percussion/Palpation: abdomen soft; abdomen nontender Musculoskeletal: No acute arthritis involving any of the joint Neurologic: normal touch/pain/proprioception and moves all extremities; no focal motor deficits Psychiatric: A+Ox3, euthymic affect Lymphatic: no cervical or axillary lymphadenopathy Principal Diagnosis Acute exacerbation of COPD Possible pneumonia Likely persistent A-fib Discharge Exam GENERAL: Alert and oriented x3. NAD, on RA. Obese class III. HEENT: No pallor, no icterus. Pupils equal, round and reactive to light. Oral mucosa moist. NECK: No JVD, no neck masses. HEART: S1 and S2 heard. irregular rate and rhythm. No murmur, no gallop. RESPIRATORY SYSTEM: Normal AP diameter. No accessory muscle use. no wheezing, no crackles. slightly diminished lung sounds b/l -- improving. ABDOMEN: Soft, bowel sounds present, nontender, no distention. CENTRAL NERVOUS SYSTEM: No facial droop. Speech is clear. Obeys simple commands. Moves extremities. EXTREMITIES: trace edema, no erythema seen. Discharge Data Allergies Allergy/AdvReac Type Severity Reaction Status Date / Time bee venom protein (honey bee) Allergy Severe Hives Verified 09/29/23 16:27 diphenhydramine Allergy Hives Verified 09/29/23 16:29 [From Benadryl] [place] Allergy itchy rash Uncoded 09/29/23 16:29 Consultations 09/29/23 18:06 ED Decision to Admit Stat 09/29/23 18:25 ED Decision to Admit Stat 09/30/23 08:00 Consult Cardiology Routine Hospital Course (1) Acute exacerbation of chronic obstructive pulmonary disease: Plan 73-year-old lady with PMH of COPD, HTN, T2DM and GERD presented to the ED 09/28 with complaint of SOB with exertion for about 2 weeks [employer], progressively worsening. She denied any fever or increased cough but reported whitish-yellow phlegm with cough at presentation. She was managed for the following: Acute exacerbation of COPD Possible pneumonia History of COPD on bronchodilators at home, came in with progressive shortness of breath for 2 weeks associated with productive cough and wheezing. Admitting CXR with right basilar opacity ---> follow-up CXR in about 6 weeks to document resolution. Exacerbation likely secondary to right basilar pneumonia. Admitting respiratory viral panel negative. Continue with as needed and scheduled nebulizers, continue home inhalers and medications. Transition to p.o. steroid on discharge. Continue with Rocephin 09/28 and doxycycline 09/28. To p.o. antibiotic on discharge to complete the course. Patient reports improvement in her shortness of breath, wheezing has improved, follow-up with PCP office within 1 week time. Patient will benefit from pulmonary function test in about 6 weeks time upon discharge. Likely persistent A-fib: Newly diagnosed A-fib, asymptomatic, unknown duration. [id number] score of 4. Cardiology on board, Eliquis is started [cost $11.2 a month, pt agreeable]. No beta-mulugeta for now. Echo with EF of 60 to 65%, moderate concentric LVH, LV wall motion is normal. TSH wnl. Other chronic medical conditions: Continue with/resume home meds as and when able Hypertension -on lisinopril (per epic chart review 09/29) and HCTZ at home per patient (1 tab daily, unaware of strenght, didn't notice in OP chart review]. Per cardio, lasix and aldactone on DC. T2DM: A1c of 7.0 this admission, continue with sliding scale insulin while in hospital. GERD: Continue with PPI. Avoid NSAIDs. DVT prophylaxis: Eliquis CODE STATUS: Full code Patient is being discharged to home with following instruction at the point of discharge: Follow-up with your primary care physician within a week time and likely you will need labs CBC/CMP/magnesium/phosphorus. You will be discharged on tapering dose of a steroid for your COPD exacerbation. You will be discharged on antibiotic to complete the course for pneumonia. You will need chest x-ray repeated in about 6 weeks time to document resolution of your pneumonia and you will benefit by pulmonary function test in about 6 weeks time. Coordinate with your PCP office to set up the test. Cardiology evaluated you while in the hospital for likely persistent A-fib, you were started on Eliquis. Your home hydrochlorothiazide has been discontinued, you will be discharged on Lasix and Aldactone. Follow-up with cardiology in 1 to 2 months time. Take your medications as prescribed. Please make sure that you are able to get your medications today by calling your pharmacy before you leave the hospital so that your treatment continuity is not broken. Home Health Attestation I certify that this patient is under my care and that I, or a physicians preschool assistant working with me, had a face to-face encounter that meets the home health [id number] encounter requirements with this patient. The encounter with the patient was in whole, or in part, for the following medical condition, which is the primary reason for home health care (list medical condition): I certify that, based on my findings, the following services are medically necessary home health services: My clinical findings support the need for the above services because: Further, I certify that my clinical findings support that this patient is homebound (i.e. absences from home require considerable and taxing effort and are for medical reasons or orthodox services or infrequently or of short duration when for other reasons) because: Certification for Home Health Services: Based on the above findings, I certify that this patient is confined to the home and needs intermittent residential care, physical therapy and/or speech therapy or continues to need occupational therapy. The patient is under my care, and I have initiated the establishment of the plan of care. This patient will be followed by a physician who will periodically review the plan of care. Total Time Total Time Spent Total Time Spent (In Minutes): 45 Discharge Plan Discharge Items Patient Disposition: Home - Self-Care Reason For Visit: EXACERBATION OF COPD Discharge Diagnosis: Acute exacerbation of COPD Possible pneumonia Likely persistent A-fib Activity: Resume your previous activity Non-emergency contact: Primary Care Provider Call non-emergency contact if: you have any medication questions, your symptoms worsen and your temperature is above 101.5 Follow-up/Referrals: Andrew Siddiqi MD [Hospitalist] - (Date & Time 10/07/2023 11:00 AM Provider Yulisa Díaz PA-C Department [facility] ) Diet: Carb Consistent or DM2 Addtl Attending Provider Instructions: Follow-up with your primary care physician within a week time and likely you will need labs CBC/CMP/magnesium/phosphorus. He will be discharged on tapering dose of a steroid for your COPD exacerbation. You will be discharged on antibiotic to complete the course for pneumonia. You will need chest x-ray repeated in about 6 weeks time to document resolution of your pneumonia and you will benefit by pulmonary function test in about 6 weeks time. Coordinate with your PCP office to set up the test. Cardiology evaluated you while in the hospital for likely persistent A-fib, you were started on Eliquis. Your home hydrochlorothiazide has been discontinued, you will be discharged on Lasix and Aldactone. Follow-up with cardiology in 1 to 2 months time. Take your medications as prescribed. Please make sure that you are able to get your medications today by calling your pharmacy before you leave the hospital so that your treatment continuity is not broken. Pending Studies at Discharge: No Stand-Alone Forms: My [employer], Smoking Cessation Medications and DC Order Prescriptions: New Eliquis 5 mg Tablet 5 mg PO BID Qty: 60 0RF spironolactone 25 mg Tablet 12.5 mg PO DAILY Qty: 15 0RF furosemide 40 mg Tablet 40 mg PO QAM Qty: 30 0RF pantoprazole 40 mg Tablet,Delayed Release (Dr/Ec) 40 mg PO DAILY Qty: 30 0RF cefdinir 300 mg capsule 300 mg PO BID 3 Days Qty: 6 0RF doxycycline hyclate 100 mg tablet 100 mg PO BID 3 Days Qty: 6 0RF Probiotic 3 billion cell capsule 3,000 mmu cells PO DAILY 7 Days Qty: 7 0RF Rx Instructions: administer with a meal prednisone 20 mg tablet 20 mg PO UD Qty: 9 0RF Rx Instructions: 2 tab daily for 3 days, then 1 tab daily for next 3 days. Continued naproxen sodium [Aleve] 220 mg Tablet 440 mg PO HS gabapentin 100 mg capsule 100 mg PO TID albuterol sulfate 90 mcg/actuation HFA aerosol inhaler 2 puff INHALATION Q4 PRN (Reason: Shortness Of Breath Or Wheezing) lisinopril 40 mg Tablet 40 mg PO DAILY glipizide 5 mg Tablet 10 mg PO QAM fluticasone propion-salmeterol [Advair HFA] 45-21 mcg/actuation HFA aerosol inhaler 2 puff INHALATION BID insulin glargine [Lantus Solostar U-100 Insulin] 100 unit/mL (3 mL) insulin pen 22 unit SUBCUT .HS PRN Rx Instructions: takes if bsg < 120 Discharge Orders: Discharge Order (Routine); Ordered 10/03/23 Ordered By: Wander Gamez Admission Data Admit Date/Time: 09/29/23 19:14 Attending Provider: Wander Gamez Admit Provider: Mela Dickerson Primary Care Provider: Devika Schofield Other Providers: Franklin Gastelum; Mela Dickerson; Yohannes Cali
== END 2023-10-03 14:53 | disposition home or self-care (01) | DRG 190 ==
LOC: ED 13:10 → SUATTDRO 19:14 → 2N 19:14